=== PATIENT | female | born 1965 | race American Indian/Alaskan Native ===

== ENCOUNTER 2017-10-18 00:46 | Inpatient (IN) | payer MEDICAID, OTHER ==
[2017-10-18 01:24] LABS: BASO # 0.1 K/uL (0.0-0.2); BASO % 0.9 % (0.0-2.0); EOS # 0.2 K/uL (0.0-0.7); EOS % 1.9 % (0.0-4.0); HEMATOCRIT 34.1 % (34.0-47.0); LYMPH # 1.9 K/uL (1.0-4.3); LYMPH % 21.7 % (20.0-40.0); MEAN CORPUSCULAR HEMOGLOBIN 20.2 pg (27.0-31.0); MEAN CORPUSCULAR HGB CONC 29.8 g/dL (33.0-37.0); MEAN PLATELET VOLUME 8.3 fL (7.2-11.7); MONO # 0.5 K/uL (0.0-0.8); MONO % 5.8 % (0.0-10.0); NRBC % 0.1 % (0.0-2.0); RED CELL DISTRIBUTION WIDTH 24.6 % (11.5-14.5); WHITE BLOOD COUNT 8.6 K/uL (4.8-10.8)
[2017-10-18 01:25] LABS: MEAN CELL VOLUME 67.7 fL (81.0-99.0)
--- NOTE | 2017-10-18 01:35 | C.PDOC ---
History Of Present Illness 52 year old female with a Hx of fibroids presents to the ER with a complaint of chest pain and abdominal pain "all day". Denies fever or other complaints. Time Seen by Provider: 10/18/17 01:14 Chief Complaint (Nursing): Chest Pain History Per: Patient History/Exam Limitations: no limitations Onset/Duration Of Symptoms: Hrs Current Symptoms Are (Timing): Still Present Associated Symptoms: denies: Nausea, Dyspnea, Diaphoresis, Syncope Modifying Factors: None Exacerbating Factors: None Alleviating Factors: None Recent travel outside of the [place]: No Past Medical History Reviewed: Historical Data, Nursing Documentation, Vital Signs Vital Signs: Last Vital Signs Temp 98.2 F 10/18/17 12:00 Pulse 82 10/19/17 08:03 Resp 24 10/19/17 08:03 BP 154/80 H 10/19/17 08:03 Pulse Ox 97 10/19/17 08:03 - Medical History PMH: Anemia, HTN Surgical History: No Surg Hx Family History: States: Unknown Family Hx - Social History Hx Alcohol Use: No Hx Substance Use: Yes - Immunization History Hx Tetanus Toxoid Vaccination: No Hx Influenza Vaccination: No Hx Pneumococcal Vaccination: No Review Of Systems Constitutional: Negative for: Fever, Chills Cardiovascular: Positive for: Chest Pain Gastrointestinal: Positive for: Abdominal Pain. Negative for: Nausea, Vomiting Neurological: Negative for: Weakness, Numbness Physical Exam - Physical Exam Appears: Non-toxic, No Acute Distress Skin: Normal Color, Warm, Dry Head: Atraumatic, Normacephalic Eye(s): bilateral: Normal Inspection Oral Mucosa: Moist Chest: Symmetrical Cardiovascular: Rhythm Regular Respiratory: Normal Breath Sounds, No Rales, No Rhonchi, No Wheezing Gastrointestinal/Abdominal: Soft, Tenderness (Mild nonfocal), No Guarding, No Rebound Neurological/Psych: Oriented x3, Normal Speech, Other (No focal deficits) ED Course And Treatment - Laboratory Results Result Diagrams: 10/19/17 06:20 10/19/17 06:20 O2 Sat by Pulse Oximetry: 97 (Room air) Pulse Ox Interpretation: Normal - CT Scan/US CT abd/pel Other Rad Studies (CT/US): Read By Radiologist, Radiology Report Reviewed CT/US Interpretation: EXAM: CT Abdomen and Pelvis With Intravenous Contrast. CLINICAL HISTORY: 52 years old, female; Pain; Abdominal pain; Generalized; Additional info: Abd pain. TECHNIQUE: Axial computed tomography images of the abdomen and pelvis with intravenous contrast. All CT. scans at this facility use one or more dose reduction techniques, viz.: automated exposure control;. ma/kV adjustment per patient size (including targeted exams where dose is matched to indication; i.e. head); or iterative reconstruction technique. 640 images are submitted. Coronal and sagittal reformatted images were created and reviewed. COMPARISON: No relevant prior studies available. FINDINGS: Lower thorax: Small right more than left pleural effusions. Bibasilar nonspecific infiltrates and. consolidation are present, consistent with atelectasis or pneumonia. Small pericardial effusion. Small thick walled hiatal hernia. ABDOMEN: Liver: Unremarkable. No mass. Gallbladder and bile ducts: Unremarkable. No ductal dilation. Pancreas: Unremarkable. No mass. No ductal dilation. Spleen: Unremarkable. No splenomegaly. Adrenals: Unremarkable. No mass. Kidneys and ureters: Unremarkable. No solid mass. No hydronephrosis. Stomach and bowel: There is distal stomach wall thickening with surrounding fluid and air suspicious. for gastric ulcer perforation seen on image 67 series 3. There is small bowel wall thickening with free intraperitoneal fluid representing reactive changes versus enteritis. Nonspecific colonic thickening. with moderate amount of stool. Diverticulosis. No obstruction. Appendix: Normal appendix. PELVIS: Bladder: Partially distended bladder. Reproductive: Uterus is seen. ABDOMEN and PELVIS: Intraperitoneal space: Moderate to large amount of abdominal and pelvic ascites. There is history. intraperitoneal air suspicious for perforated viscus from an upper GI source. Bones/joints: No acute fracture. No dislocation. Soft tissues: Unremarkable. Vasculature: Unremarkable. No abdominal aortic aneurysm. Lymph nodes: Unremarkable. No enlarged lymph nodes. IMPRESSION: 1. Moderate to large amount of abdominal and pelvic ascites. There is history intraperitoneal. air suspicious for perforated viscus from an upper GI source. 2. There is distal stomach wall thickening with surrounding fluid and air suspicious for. gastric ulcer perforation seen on image 67 series 3 and on image 42 series 601 and image 71. series 602. 3.Small right more than left pleural effusions. Bibasilar nonspecific infiltrates and consolidation are. present, consistent with atelectasis or pneumonia. 4. Abdominal and pelvic ascites with bowel wall thickening. Correlation with clinical data is. recommended if peritonitis is clinically suspected with reactive enteritis. CRITICAL RESULT: The study was personally discussed on the telephone with [Piero Daigle]. on 10/18/2017 5 :44 AM EST. The results were understood and acknowledged. Critical Care Time - Critical Care Note Total Time (in mins): 45 Documented critical care: time excludes all time spent performing seperately billable procedures. Medical Decision Making Medical Decision Making: EKG, blood work, CXR, CT abd/pel, and urinalysis ordered. Case discussed with Dr. Gordon who agrees to admit patient to ICU, behavioral health technician is aware of patient. vice president tax at bedside, informs patient will be going to OR. Disposition - Disposition Disposition: HOSPITALIZED Disposition Time: 06:00 Condition: CRITICAL - Clinical Impression Clinical Impression: Perforated ulcer - Scribe Statement The provider has reviewed the documentation as recorded by the Scribmary jo Perez All medical record entries made by the Jameibmary jo were at my direction and personally dictated by me. I have reviewed the chart and agree that the record accurately reflects my personal performance of the history, physical exam, medical decision making, and the department course for this patient. I have also personally directed, reviewed, and agree with the discharge instructions and disposition.
[2017-10-18 01:48] LABS: CALCIUM 8.7 mg/dl (8.6-10.4); GFR AFRICAN-AMERICAN > 60; GLUCOSE,RANDOM 90 mg/dL (65-105)
[2017-10-18 01:49] LABS: ALB/GLOB RATIO 1.1 (1.0-2.1); ALKALINE PHOSPHATASE 82 U/L (38-126); ALT/SGPT 31 U/L (9-52); AST/SGOT 64 U/L (14-36); BILIRUBIN,TOTAL 1.2 mg/dL (0.2-1.3); BLOOD UREA NITROGEN 12 mg/dL (7-17); CARBON DIOXIDE 30 mmol/L (22-30); CHLORIDE 99 mmol/L (98-107); POTASSIUM 4.8 mmol/L (3.6-5.2); SODIUM 136 mmol/L (132-148); TOTAL PROTEIN 7.7 g/dL (6.3-8.3)
[2017-10-18 02:24] LABS: RBC URINE 1 /hpf (0-3); URINE BACTERIA RARE (<OCC); URINE BILIRUBIN NEGATIVE (NEGATIVE); URINE COLOR Yellow (YELLOW); URINE GLUCOSE (UA) NORMAL (Normal); URINE KETONE NEGATIVE (NEGATIVE); URINE LEUKOCYTE ESTERASE NEG Leu/uL (Negative); URINE PROTEIN NEGATIVE (NEGATIVE); URINE UROBILINOGEN NORMAL mg/dL (0.2-1.0); WBC URINE 1 /hpf (0-5)
[2017-10-18 02:29] LABS: URINE BLOOD NEGATIVE (NEGATIVE)
[2017-10-18] MEDS ORDERED: Morphine 4 MG/ML VIAL ONE ×3 (02:47→08:55)
[2017-10-18] MEDS ORDERED: Piperacillin/Tazobact 3.375 GM in Sodium Chloride 100 ML IVPB STA (05:44)
[2017-10-18] MEDS ORDERED: Sodium Chloride 0.9% 1,000 ML IV ONE ×3 (05:52→07:55)
[2017-10-18] MEDS ORDERED: Piperacill/Tazo 3.375gm in Dex 3.375 GM/50 ML BAG IVPB STA (06:05)
[2017-10-18] MEDS ORDERED: HYDROmorphone 1 mg/ml ISec IVP PRN (06:34)
[2017-10-18] MEDS ORDERED: HYDROmorphone 1 mg/ml ISec ONE (06:42)
[2017-10-18] MEDS ORDERED: Piperacill/Tazo 3.375gm in Dex 3.375 GM/50 ML BAG IVPB SCH (07:00)
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
[2017-10-18] MEDS ORDERED: Sodium Chloride 0.9% 1,000 ML ONE (07:39)
[2017-10-18] MEDS: Sodium Chloride 0.9% 1,000 ML IV SCH ×2 (07:41→14:08)
[2017-10-18] MEDS ORDERED: Lactated Ringer's 1,000 ML IV ONE ×2 (07:55→09:22)
[2017-10-18] MEDS ORDERED: Etomidate 20 mg/10ml Inj IV ONE (08:18)
[2017-10-18] MEDS ORDERED: Midazolam 2 MG/2 ML VIAL ONE (08:18)
[2017-10-18] MEDS ORDERED: Rocuronium 10 mg/ml (5 ml) ONE (08:36)
[2017-10-18] MEDS ORDERED: Neostigmine Methylsulfate 3mg/3ml Syringe IV ONE (09:22)
[2017-10-18] MEDS ORDERED: Enoxaparin 40 mg Syringe SC SCH (10:00)
--- NOTE | 2017-10-18 10:03 | PCM.SURG1 ---
Surgeon's Initial Post Op Note - Surgeon's Notes Surgeon: Dr. Gordon Bpo Specialist: Dr. Sanchez PGY3, PGY1, Tessa OMS3 Type of Anesthesia: General Endo Pre-Operative Diagnosis: perforated duodenal ulcer Operative Findings: see op note Post-Operative Diagnosis: as above Operation Performed: exploratory laparotomy w/ Lisandro patch Specimen/Specimens Removed: none Estimated Blood Loss: EBL {In ML}: 15 Drains Used: No Drains Date of Surgery/Procedure: 10/18/17 Time of Surgery/Procedure: 08:10
[2017-10-18] MEDS: Piperacill/Tazo 3.375gm in Dex 3.375 GM/50 ML BAG IVPB SCH ×3 (11:00→23:03)
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
--- NOTE | 2017-10-18 14:01 | RAD ---
PROCEDURE: CHEST RADIOGRAPH, 1 VIEW HISTORY: chest pain COMPARISON: None available. FINDINGS: LUNGS: Poor inspiration with low lung volumes, crowded bronchovascular markings and minor bibasilar atelectasis. PLEURA: No pneumothorax or pleural fluid seen. CARDIOVASCULAR: Heart size upper limits of normal/ borderline enlarged. OSSEOUS STRUCTURES: No significant abnormalities. VISUALIZED UPPER ABDOMEN: Normal. OTHER FINDINGS: None. IMPRESSION: Poor inspiration with low lung volumes, crowded bronchovascular markings and minor bibasilar atelectasis.
[2017-10-18] MEDS: metroNIDAZOLE IV 500 mg/100 ml 500 MG/100 ML BAG IVPB SCH ×2 (14:04→21:42)
[2017-10-18 16:58] LABS: BASO % 0.3 % (0.0-2.0); EOS % 0.1 % (0.0-4.0); HEMATOCRIT 30.1 % (34.0-47.0); LYMPH # 0.4 K/uL (1.0-4.3); LYMPH % 3.7 % (20.0-40.0); MEAN CELL VOLUME 67.4 fL (81.0-99.0); MEAN CORPUSCULAR HEMOGLOBIN 20.7 pg (27.0-31.0); MEAN CORPUSCULAR HGB CONC 30.7 g/dL (33.0-37.0); MEAN PLATELET VOLUME 8.2 fL (7.2-11.7); MONO # 0.5 K/uL (0.0-0.8); MONO % 4.5 % (0.0-10.0); PLATELET COUNT 498 K/uL (130-400); RED CELL DISTRIBUTION WIDTH 24.6 % (11.5-14.5); WHITE BLOOD COUNT 10.7 K/uL (4.8-10.8)
[2017-10-18 17:16] LABS: NEUTROPHIL 75 % (50-75); TOTAL CELLS COUNTED 100
[2017-10-18 17:19] LABS: LARGE PLATELETS PRESENT
[2017-10-18 17:35] LABS: ALB/GLOB RATIO 0.9 (1.0-2.1); ALKALINE PHOSPHATASE 63 U/L (38-126); ALT/SGPT 48 U/L (9-52); AST/SGOT 56 U/L (14-36); BILIRUBIN,TOTAL 1.1 mg/dL (0.2-1.3); BLOOD UREA NITROGEN 9 mg/dL (7-17); CARBON DIOXIDE 25 mmol/L (22-30); CHLORIDE 102 mmol/L (98-107); GFR AFRICAN-AMERICAN > 60; GLUCOSE,RANDOM 100 mg/dL (65-105); MAGNESIUM 1.5 mg/dL (1.6-2.3); POTASSIUM 3.7 mmol/L (3.6-5.2); SODIUM 131 mmol/L (132-148); TOTAL PROTEIN 6.2 g/dL (6.3-8.3)
--- NOTE | 2017-10-18 18:25 | OP ---
PROCEDURE DATE: 10/18/2017 SURGEON: Rosas Gordon MD ENGINEER/CONDUCTOR: Dr. Sanchez and Dr. Sharp. ANESTHESIA: General. ANESTHESIOLOGIST: Lloyd Colón DO PREOPERATIVE DIAGNOSIS: Perforated pyloric ulcer. POSTOPERATIVE DIAGNOSIS: Perforated pyloric ulcer. PROCEDURE: Exploratory laparotomy, abdominal flush out and plication of pyloric ulcer with Lisandro patch. DESCRIPTION OF OPERATION: With the patient in the supine position under adequate general anesthesia, the abdomen was prepped and draped in the usual sterile manner. A midline incision was made above the umbilicus and taken down through the subcutaneous tissue. The peritoneum was entered in the midline. Upon entering the peritoneal cavity, there was noted to be a moderate amount of cloudy fluid and a small exudate noted primarily in the upper abdomen, although some was noted in the pelvis as well. There was noted be adhesions of the omentum down to the area of the umbilicus and the left pelvis what appear to be laparoscopic tubal ligation, and these adhesions were freed-up with portion of the at most adherent omentum being clamped divided and ligated with Vicryl ties. The stomach was then fully freed, and on examination, there was noted to be a perforation of just under 1-cm noted on the anterior aspect of the distal stomach just prepyloric. There was some green-tinged drainage and small amount of what appeared to be vegetable material noted in the area of the perforation, and the abdomen at this point was irrigated with warm saline and suctioned with attention paid to both the right and left subphrenic spaces as well as the right and left gutters and the pelvis. Moderate fluid was expressed and small amount of exudate primarily from the pelvic region. The omentum at this point had been completely freed and a well-vascularized tongue of omentum was developed to perform the Lisandro patch. Interrupted sutures of 2-0 Vicryl were placed above and below the area of the perforation and the omentum was positioned over the sutures and covering the perforation and then loosely tied and placed to cover the perforation. The nasogastric tube was positioned well within the body of the stomach and placed on suction, and the pelvis was again irrigated with warm saline. The abdominal wall was closed with running sutures of double-stranded #1 PDS. The subcutaneous tissue was irrigated, and the skin was closed with ian. A dry sterile dressing was applied. Estimated blood loss for the procedure was 40 mL. Rosas Gordon MD
[2017-10-18 18:55] LABS: IRON 14 ug/dL (37-170)
--- NOTE | 2017-10-18 19:36 | CT ---
PROCEDURE: CT abdomen pelvis dated 10/18/2017. HISTORY: Abdominal pain. COMPARISON: No prior TECHNIQUE: Contiguous axial images of the abdomen and pelvis. Oral contrast was administered. No IV contrast given. Coronal and Sagittal reformats generated. Radiation dose: Total exam DLP = 842.42 mGy-cm. This CT exam was performed using one or more of the following dose reduction techniques: Automated exposure control, adjustment of the mA and/or kV according to patient size, and/or use of iterative reconstruction technique. FINDINGS: LOWER THORAX: Small bilateral effusions right larger than left. Patchy opacity seen in the right posterior and to a lesser degree left posterior sulci could represent atelectasis versus developing infiltrates. No basilar pneumothorax. There is a halo hernia with wall thickening of the distal esophagus which could be due to protrusion gastric mucosa. Esophagitis not excluded. Heart appears enlarged. LIVER: The liver is upper limits of normal measuring just over 18 cm in CC dimension. Mild diffuse fatty hepatic infiltration. Tiny sub cm low-attenuation focus lateral aspect right lobe liver too small to characterize. Followup interval could be performed to assess stability. Portal and splenic veins are opacified. . No gross intrahepatic did biliary duct dilatation. . There is a large amount of ascites the most significant which is located in the mid to lower abdomen and pelvis. GALLBLADDER AND BILE DUCTS: Gallbladder is physiologically distended. No evidence of intraluminal gallbladder calculi. Mild gallbladder wall thickening could be due to ascites. PANCREAS: The pancreas appears grossly unremarkable. . SPLEEN: Unremarkable. No splenomegaly. ADRENALS: No adrenal lesions. . KIDNEYS AND URETERS: Kidneys demonstrate symmetric nephrograms. No evidence of nephrolithiasis or hydronephrosis. BLADDER: Urinary bladder is physiologically distended. No evidence of intraluminal urinary bladder calculi. REPRODUCTIVE: The uterus appears grossly unremarkable. APPENDIX: Unremarkable. BOWEL: Evaluation of the bowel is limited due to the lack of oral contrast material. Liquid and air present within the stomach. Questionable wall thickening of the distal stomach. Rule out perforated ulcer. There is also a radiopaque metallic like density within the expected location of the lumen of the duodenum with another radiopaque density seen in the proximal small bowel an additional radiopaque densities within the slightly more distal small bowel. Clinical correlation recommended. There are of multiple loops of thick-walled small bowel nonspecific. Rule out reactive, infectious or inflammatory enteritis. Rule out of peritonitis. . . There is a large amount of stool seen within the cecum at ascending and transverse colon consistent with fecal retention. Most of the descending colon appears collapsed as does the sigmoid colon and cannot be adequately evaluated however questionable wall thickening of the splenic flexure and proximal descending colon. . . . PERITONEUM: There is a small amount of free intraperitoneal air. Large amount of ascites as described above. Rule out the peritonitis. LYMPH NODES: Unremarkable. No enlarged lymph nodes. VASCULATURE: Unremarkable. No aortic aneurysm. BONES: No fracture or destructive lesion. OTHER FINDINGS: None. IMPRESSION: There is a large amount of abdominal ascites with free intraperitoneal air. Rule out perforated gastric ulcer. There are multiple thick-walled loops of small bowel ; rule out enteritis reactive, infectious and or inflammatory. Rule out peritonitis. Constipation involving right and transverse colon. Questionable wall thickening of the splenic flexure and proximal descending colon. Small low-attenuation focus lateral aspect right lobe liver too small to characterize. Tiny bilateral effusions and minor bibasilar atelectasis. Cardiomegaly. Note that preliminary report provided by overnight radiology service.
[2017-10-18] MEDS: Magnesium Sulfate 1 gm in D5W 1 GM/100 ML BAG IVPB SCH ×2 (21:15→21:43)
[2017-10-19] MEDS: Sodium Chloride 0.9% 1,000 ML IV SCH ×2 (01:26→03:17)
[2017-10-19] MEDS: Piperacill/Tazo 3.375gm in Dex 3.375 GM/50 ML BAG IVPB SCH ×4 (04:59→22:10)
[2017-10-19] MEDS: metroNIDAZOLE IV 500 mg/100 ml 500 MG/100 ML BAG IVPB SCH ×3 (06:00→21:08)
[2017-10-19 06:44] LABS: HEMATOCRIT 28.1 % (34.0-47.0); MEAN CELL VOLUME 66.3 fL (81.0-99.0); MEAN CORPUSCULAR HEMOGLOBIN 20.7 pg (27.0-31.0); MEAN CORPUSCULAR HGB CONC 31.1 g/dL (33.0-37.0); MEAN PLATELET VOLUME 8.8 fL (7.2-11.7); RED CELL DISTRIBUTION WIDTH 24.5 % (11.5-14.5)
[2017-10-19 07:20] LABS: ALB/GLOB RATIO 1.2 (1.0-2.1); ALKALINE PHOSPHATASE 71 U/L (38-126); ALT/SGPT 29 U/L (9-52); AST/SGOT 33 U/L (14-36); BILIRUBIN,TOTAL 1.4 mg/dL (0.2-1.3); BLOOD UREA NITROGEN 8 mg/dL (7-17); CALCIUM 8.1 mg/dl (8.6-10.4); CARBON DIOXIDE 23 mmol/L (22-30); CHLORIDE 101 mmol/L (98-107); GFR AFRICAN-AMERICAN > 60; GLUCOSE,RANDOM 83 mg/dL (65-105); POTASSIUM 3.7 mmol/L (3.6-5.2); SODIUM 132 mmol/L (132-148); TOTAL PROTEIN 5.4 g/dL (6.3-8.3)
[2017-10-19] MEDS: Potassium Ch 20mEq in D5-1/2NS 1,000 ML IV SCH ×3 (09:51→17:41)
[2017-10-19] MEDS: Enoxaparin 40 mg Syringe SC SCH (09:54)
--- NOTE | 2017-10-19 11:53 | CP.PCM.PN ---
Subjective - Date & Time of Evaluation Date of Evaluation: 10/19/17 Time of Evaluation: 11:50 - Subjective Subjective: Surgery: Dr. Gordon Pt seen and examined. Has complaints of abd pain. No N/V. No F/C. Objective - Vital Signs/Intake and Output Vital Signs (last 24 hours): Temp Pulse Resp BP Pulse Ox 98.2 F 80 24 156/72 H 97 10/18/17 12:00 10/19/17 11:03 10/19/17 11:03 10/19/17 11:03 10/19/17 11:38 Intake and Output: 10/19/17 10/19/17 06:59 18:59 Intake Total 1850 650 Output Total 1765 950 Balance 85 -300 - Medications Medications: Current Medications Enoxaparin Sodium (Lovenox) 40 mg SC DAILY [facility] Last Admin: 10/19/17 09:54 Dose: 40 mg Hydromorphone HCl (Dilaudid) 2 mg IVP Q2 PRN PRN Reason: Excess sedation Stop: 10/21/17 10:57 Last Admin: 10/19/17 09:53 Dose: 2 mg Metronidazole (Flagyl) 500 mg in 100 mls @ 100 mls/hr IVPB Q8 [facility] Last Admin: 10/19/17 06:00 Dose: 100 mls/hr Piperacillin Sod/Tazobactam Sod (Zosyn 3.375 Gm Iv Premix) 3.375 gm in 50 mls @ 100 mls/hr IVPB Q6H [facility] Last Admin: 10/19/17 04:59 Dose: 100 mls/hr Acetaminophen (Ofirmev) 100 mls @ 400 mls/hr IV Q6 PRN PRN Reason: Pain, moderate (4-7) Last Admin: 10/19/17 09:53 Dose: 400 mls/hr Potassium Chloride/Dextrose/Sod Cl (Potassium Chl 20 Meq In D5-1/2ns) 1,000 mls @ 125 mls/hr IV .Q8H [facility] Last Admin: 10/19/17 09:51 Dose: 125 mls/hr Ondansetron HCl (Zofran Inj) 4 mg IVP Q4H PRN PRN Reason: Nausea/Vomiting Last Admin: 10/18/17 06:46 Dose: 4 mg Pantoprazole Sodium (Protonix Inj) 40 mg IVP Q12H [facility] Last Admin: 10/19/17 07:50 Dose: 40 mg - Labs Labs: 10/19/17 06:20 10/19/17 06:20 PT 10.7 SECONDS (9.7-12.2) 10/18/17 01:21 INR 1.0 10/18/17 01:21 APTT 23 SECONDS (21-34) 10/18/17 01:21 - Constitutional Appears: Non-toxic, No Acute Distress - Head Exam Head Exam: ATRAUMATIC, NORMOCEPHALIC - Eye Exam Eye Exam: EOMI - ENT Exam ENT Exam: Mucous Membranes Moist - Neck Exam Neck Exam: Full ROM - Respiratory Exam Respiratory Exam: NORMAL BREATHING PATTERN. absent: Accessory Muscle Use, Respiratory Distress - GI/Abdominal Exam GI & Abdominal Exam: Soft, Tenderness (denae-incisional ). absent: Distended, Firm, Guarding, Rigid Additional comments: dressing in place, C/D/I - Extremities Exam Extremities Exam: absent: Calf Tenderness, Pedal Edema - Neurological Exam Neurological Exam: Alert, Awake, Oriented x3 Assessment and Plan - Assessment and Plan (Free Text) Assessment: 52F w. perforated gastric ulcer, s/p ex-lap w. joan patch, POD#1 -NGT: 100cc/24 hr, keep NGT to suction -[place]: 1625cc/24 hr, will D/C -Pain: c/w dilaudid, will start ofirmev, psych consulted for methadone -c/w IVF -c/w abx -encourage IS use -PT -GI/DVT prophylaxis -d/w attending Zemaitis PGY3
--- NOTE | 2017-10-19 15:59 | PCM.PSYCH ---
Initial Psychiatric Evaluation - Initial Psychiatric Evaluation Type of Admission: Voluntary Legal Status: Capacity Chief Complaint (in patient's own words): "I need methadone" History of Present Illness and Precipitating Events: The pt is seen, chart reviewed, case discussed Consult was asked for her heroin use and psych issues She is a 52 yo AAF with bipolar d/o and opioid dependence She is single, lives with her mother and is on disability She reports using 10 bags intranasally x30 years. She had been to detox and rehab "5-6 times" and wants to go again. She used to go to a methadone program "years ago" in [place] and her dose was 30 mg. Utox is negative, she is NOT on methadone program anymore. She used just before admission here and is now on Dilaudid q2h, which she claims , is "not holding" her. She was restless and in mild withdrawal when seen. Pt was also taking depakote and seroquel but wants seroquel now No manic sxs but is somewhat depressed. NO psychosis or delirium Cocaine positive but denies all other substances and alcohol. Past psych hx: Admitted long ago, dx'ed with bipolar d/o. Name of dr? Family psych hx: Denied Medical hx: Denied but see chart for details, here for intestinal surgery. Current Medications: Active Medications Generic Name Dose Route Start Last Admin Trade Name Catarina PRN Reason Stop Dose Admin Enoxaparin Sodium 40 mg 10/19/17 10:00 10/19/17 09:54 Lovenox SC 40 mg DAILY [facility] Administration Hydromorphone HCl 2 mg 10/18/17 20:04 10/19/17 14:44 Dilaudid IVP 10/21/17 10:57 2 mg Q2 PRN Administration Excess sedation Metronidazole 500 mg in 100 mls @ 100 mls/hr 10/18/17 14:00 10/19/17 14:49 Flagyl IVPB 100 mls/hr Q8 [facility] Administration Piperacillin Sod/Tazobactam Sod 3.375 gm in 50 mls @ 100 mls/hr 10/18/17 11: 00 10/19/17 12:28 Zosyn 3.375 Gm Iv Premix IVPB 100 mls/hr Q6H [facility] Administration Acetaminophen 100 mls @ 400 mls/hr 10/19/17 07:38 10/19/17 09:53 Ofirmev IV 400 mls/hr Q6 PRN Administration Pain, moderate (4-7) Potassium Chloride/Dextrose/Sod Cl 1,000 mls @ 125 mls/hr 10/19/17 08:15 09:51 Potassium Chl 20 Meq In D5-1/2ns IV 125 mls/hr .Q8H [facility] Administration Ondansetron HCl 4 mg 10/18/17 06:35 10/18/17 06:46 Zofran Inj IVP 4 mg Q4H PRN Administration Nausea/Vomiting Pantoprazole Sodium 40 mg 10/18/17 07:15 10/19/17 07:50 Protonix Inj IVP 40 mg Q12H [facility] Administration Past Psychiatric History - Past Psychiatric History Previous Treatment History: Inpatient Pertinent Medical Hx (Current Medical&Sleep Prob, Allergies): Allergies Allergy/AdvReac Type Severity Reaction Status Date / Time No Known Allergies Allergy Unverified 10/18/17 00:54 Review of Systems - Neurological Neurological: Abnormal Gait, Tremor, Weakness - Psychiatric Psychiatric: Abnormal Sleep Pattern, Anhedonia, Anxiety, Depression, Difficulty Concentrating. absent: Hallucinations, Homicidal Ideation, Paranoia, Suicidal Ideation Mental Status Examination - Personal Presentation Personal Presentation: Looks older than stated age - Affect Affect: Constricted - Motor Activity Motor Activity: Psychomotor Agitation (mild) - Reliability in Providing Information Reliability in Providing Information: Fair - Speech Speech: Organized - Mood Mood: Anxious - Formal Thought Process Formal Thought Process: No Impairment - Cognitive Functions Orientation: Person, Place, Situation, Time Sensorium: Alert Attention/Concentration: Attentive Estimate of Intelligence: Average Judgement: Intact, as evidence by: Insight regarding need for hospitalization Memory: Recent intact, as evidence by: Ability to recall events of the day, Remote intact, as evidenced by: Ability to recall historical events - Risk Risk: Withdrawal, Diminished functioning - Strength & Assets Inventory Strength & Assets Inventory: Cooperative - Limitations Limitations: Other (medical ) DSM 5 DX - DSM 5 DSM 5 Diagnosis: Opioid withdrawal Opioid use d/o - severe Bipolar d/o - depressed - Recommended/Plan of Treatment Treatment Recommendations and Plan of Treatment: Opioids: - Pt can be started on methadone taper/detox but mixing with dilaudid or other opioid painkillers will be risky and will defy the purpose. - If she can be switched to a methadone-only pain management, please do so. [facility] does not order pain treatment. - Otherwise, please continue current regimen (maybe with more breakthrough pain management included) - She can do detox when she doesn't need as much opioid painkillers... - She can be referred to a methadone program or suboxone program by the SW ( when medically cleared) Bipolar d/o: - Seroquel started, dose will be increased slowly - Support given 33 min
[2017-10-20] MEDS: Potassium Ch 20mEq in D5-1/2NS 1,000 ML IV SCH ×4 (04:11→16:30)
[2017-10-20] MEDS: Piperacill/Tazo 3.375gm in Dex 3.375 GM/50 ML BAG IVPB SCH ×4 (04:33→22:37)
[2017-10-20] MEDS: metroNIDAZOLE IV 500 mg/100 ml 500 MG/100 ML BAG IVPB SCH ×3 (05:15→21:35)
--- NOTE | 2017-10-20 08:38 | CP.PCM.PN ---
Subjective - Date & Time of Evaluation Date of Evaluation: 10/20/17 Time of Evaluation: 07:00 - Subjective Subjective: General Surgery Note for Dr. Gordon Patient seen and examined at bedside. No acute event overnight. Patient transferred to floor from ICU. She still complains of abdominal and back pain. NGT 500cc/12hrs. No other complaints at this time. Objective - Vital Signs/Intake and Output Vital Signs (last 24 hours): Temp Pulse Resp BP Pulse Ox 97.3 F L 70 20 138/81 93 L 10/20/17 08:03 10/20/17 08:03 10/20/17 08:03 10/20/17 08:03 10/20/17 08:03 - Medications Medications: Current Medications Enoxaparin Sodium (Lovenox) 40 mg SC DAILY [facility] Last Admin: 10/19/17 09:54 Dose: 40 mg Hydromorphone HCl (Dilaudid) 2 mg IVP Q2 PRN PRN Reason: Pain, severe (8-10) Stop: 10/21/17 10:57 Last Admin: 10/20/17 04:33 Dose: 2 mg Metronidazole (Flagyl) 500 mg in 100 mls @ 100 mls/hr IVPB Q8 [facility] Last Admin: 10/20/17 05:15 Dose: 100 mls/hr Piperacillin Sod/Tazobactam Sod (Zosyn 3.375 Gm Iv Premix) 3.375 gm in 50 mls @ 100 mls/hr IVPB Q6H [facility] Last Admin: 10/20/17 04:33 Dose: 100 mls/hr Acetaminophen (Ofirmev) 100 mls @ 400 mls/hr IV Q6 PRN PRN Reason: Pain, moderate (4-7) Last Admin: 10/19/17 09:53 Dose: 400 mls/hr Potassium Chloride/Dextrose/Sod Cl (Potassium Chl 20 Meq In D5-1/2ns) 1,000 mls @ 125 mls/hr IV .Q8H [facility] Last Admin: 10/20/17 08:05 Dose: Not Given Methadone HCl (Methadone) 30 mg PO DAILY [facility] Last Admin: 10/19/17 21:07 Dose: 30 mg Ondansetron HCl (Zofran Inj) 4 mg IVP Q4H PRN PRN Reason: Nausea/Vomiting Last Admin: 10/18/17 06:46 Dose: 4 mg Pantoprazole Sodium (Protonix Inj) 40 mg IVP Q12H [facility] Last Admin: 10/19/17 18:44 Dose: 40 mg - Labs Labs: 10/19/17 06:20 10/19/17 06:20 PT 10.7 SECONDS (9.7-12.2) 10/18/17 01:21 INR 1.0 10/18/17 01:21 APTT 23 SECONDS (21-34) 10/18/17 01:21 - Constitutional Appears: No Acute Distress - Head Exam Head Exam: ATRAUMATIC, NORMOCEPHALIC - Eye Exam Eye Exam: Normal appearance - ENT Exam ENT Exam: Mucous Membranes Moist - Respiratory Exam Respiratory Exam: NORMAL BREATHING PATTERN - Cardiovascular Exam Cardiovascular Exam: REGULAR RHYTHM - GI/Abdominal Exam GI & Abdominal Exam: Soft, Tenderness (incisional). absent: Distended, Firm, Guarding, Rigid, Rebound Additional comments: dressings clean dry and intact - Neurological Exam Neurological Exam: Alert, Awake, Oriented x3 - Psychiatric Exam Psychiatric exam: Normal Affect, Normal Mood - Skin Skin Exam: Dry, Intact, Normal Color, Warm Assessment and Plan - Assessment and Plan (Free Text) Plan: 52F with perforated gastric ulcer, s/p ex-lap and joan patch POD#2 -NG Tube to suction -Pain management - psych consult for methadone -IV Fluids -IV antibiotics -OOB/IS/ambulation -PT/OT -GI/DVT prophylaxis --Discused with Dr. Evan Page PGY1
[2017-10-20] MEDS: Enoxaparin 40 mg Syringe SC SCH (09:18)
[2017-10-21] MEDS: Potassium Ch 20mEq in D5-1/2NS 1,000 ML IV SCH ×5 (00:15→21:21)
[2017-10-21] MEDS: Piperacill/Tazo 3.375gm in Dex 3.375 GM/50 ML BAG IVPB SCH ×4 (05:30→23:35)
[2017-10-21] MEDS: metroNIDAZOLE IV 500 mg/100 ml 500 MG/100 ML BAG IVPB SCH ×3 (06:03→21:29)
[2017-10-21] MEDS: Enoxaparin 40 mg Syringe SC SCH (10:09)
--- NOTE | 2017-10-21 11:59 | CP.PCM.PN ---
Subjective - Date & Time of Evaluation Date of Evaluation: 10/21/17 Time of Evaluation: 11:57 - Subjective Subjective: Surgery: Dr. Gordon Pt seen and examined. Resting comfortably in bed. Pain is controlled. NGT was D/ C this morning. No complaints of N/V. Pt is hungry and would like to eat. Objective - Vital Signs/Intake and Output Vital Signs (last 24 hours): Temp Pulse Resp BP Pulse Ox 97.3 F L 62 18 144/89 96 10/21/17 08:40 10/21/17 08:40 10/21/17 08:40 10/21/17 08:40 10/21/17 08:40 Intake and Output: 10/21/17 10/21/17 06:59 18:59 Intake Total 2350 Output Total 350 Balance 1999 - Medications Medications: Current Medications Enoxaparin Sodium (Lovenox) 40 mg SC DAILY [facility] Last Admin: 10/21/17 10:09 Dose: 40 mg Metronidazole (Flagyl) 500 mg in 100 mls @ 100 mls/hr IVPB Q8 [facility] Last Admin: 10/21/17 06:03 Dose: 100 mls/hr Piperacillin Sod/Tazobactam Sod (Zosyn 3.375 Gm Iv Premix) 3.375 gm in 50 mls @ 100 mls/hr IVPB Q6H [facility] Last Admin: 10/21/17 10:09 Dose: 100 mls/hr Acetaminophen (Ofirmev) 100 mls @ 400 mls/hr IV Q6 PRN PRN Reason: Pain, moderate (4-7) Last Admin: 10/19/17 09:53 Dose: 400 mls/hr Potassium Chloride/Dextrose/Sod Cl (Potassium Chl 20 Meq In D5-1/2ns) 1,000 mls @ 80 mls/hr IV .[id number] [facility] Last Admin: 10/21/17 08:02 Dose: 80 mls/hr Methadone HCl (Methadone) 30 mg PO DAILY [facility] Last Admin: 10/21/17 10:08 Dose: 30 mg Ondansetron HCl (Zofran Inj) 4 mg IVP Q4H PRN PRN Reason: Nausea/Vomiting Last Admin: 10/18/17 06:46 Dose: 4 mg Pantoprazole Sodium (Protonix Inj) 40 mg IVP Q12H [facility] Last Admin: 10/21/17 06:15 Dose: 40 mg Quetiapine Fumarate (Seroquel) 50 mg PO HS [facility] Last Admin: 10/20/17 22:40 Dose: 50 mg - Labs Labs: 10/19/17 06:20 10/19/17 06:20 PT 10.7 SECONDS (9.7-12.2) 10/18/17 01:21 INR 1.0 10/18/17 01:21 APTT 23 SECONDS (21-34) 10/18/17 01:21 - Constitutional Appears: Non-toxic, No Acute Distress - Head Exam Head Exam: ATRAUMATIC, NORMOCEPHALIC - Eye Exam Eye Exam: EOMI - ENT Exam ENT Exam: Mucous Membranes Moist - Neck Exam Neck Exam: Full ROM - Respiratory Exam Respiratory Exam: NORMAL BREATHING PATTERN. absent: Accessory Muscle Use, Respiratory Distress - GI/Abdominal Exam GI & Abdominal Exam: Soft, Tenderness (mild denae-incisional ). absent: Distended, Firm, Guarding, Rigid - Extremities Exam Extremities Exam: absent: Calf Tenderness, Pedal Edema - Neurological Exam Neurological Exam: Alert, Awake, Oriented x3 Assessment and Plan - Assessment and Plan (Free Text) Assessment: 52F with perforated gastric ulcer, s/p ex-lap and joan patch POD#3 -F/U labs -c/w pain management -NGT removed, will start CLD, monitor bowel fxn, advance diet as tolerated -PT ordered -encourage OOB to chair and IS use -GI/DVT prophylaxis -d/w attending Zemaitis PGY3
[2017-10-21 12:45] LABS: HEMATOCRIT 24.9 % (34.0-47.0); MEAN CELL VOLUME 65.9 fL (81.0-99.0); MEAN CORPUSCULAR HEMOGLOBIN 20.1 pg (27.0-31.0); MEAN CORPUSCULAR HGB CONC 30.4 g/dL (33.0-37.0); RED CELL DISTRIBUTION WIDTH 24.3 % (11.5-14.5); WHITE BLOOD COUNT 6.7 K/uL (4.8-10.8)
--- NOTE | 2017-10-21 13:05 | PCM.PYCHPN ---
Psychiatric Progress Note - Psychiatric Progress Note Patient seen today, length of contact: 15 min Patient Chief Complaint: "I need help" Problems Identified/Issues Discussed: The patient is seen, chart reviewed and case discussed. The patient is on 30 mg methadone AND other pain medications as needed. Oddly enough she still wants more medications. However literary writer spoke to her and she understood that she would be tapered off. This is important because she also wants to go to a rehabilitation after he and she won't be able to go if she is not detoxed and if she is not off pain medications. She may take known opiate pain medications. She understood Otherwise, she is okay with Seroquel which the dose will be increased. No suicidality, no manic or psychotic symptoms. Support given, ID used Medication Change: Yes (start tapering off methadone) Medical Record Reviewed: Yes Mental Status Examination - Cognitive Function Orientation: Person, Place, Situation, Time Memory: Impaired Attention: Poor Concentration: Poor Association: WNL Fund of Knowledge: Poor - Mood Mood: Anxious - Affect Affect: Constricted - Speech Speech: Appropriate - Formal Thought Process Formal Thought Process: No Impairment - Suicidal Ideation Suicidal Ideation: No - Homicidal Ideation Homicidal Ideation: No Goal/Treatment Plan - Goal/Treatment Plan Need for Continued Stay: Discharge may exacerbated symptoms, Severe functional impairment Progress Toward Problem(s) and Goals/Treatment Plan: Opioids: - Methadone taper will be completed by Thursday - She can be referred to a methadone program or suboxone program by the ( when medically cleared) Bipolar d/o: - Seroquel dose increased - Support given
[2017-10-21 13:07] LABS: ALB/GLOB RATIO 0.8 (1.0-2.1); ALKALINE PHOSPHATASE 56 U/L (38-126); ALT/SGPT 33 U/L (9-52); AST/SGOT 12 U/L (14-36); BILIRUBIN,TOTAL 0.6 mg/dL (0.2-1.3); BLOOD UREA NITROGEN 5 mg/dL (7-17); CALCIUM 7.9 mg/dl (8.6-10.4); CARBON DIOXIDE 28 mmol/L (22-30); CHLORIDE 103 mmol/L (98-107); GFR AFRICAN-AMERICAN > 60; GLUCOSE,RANDOM 86 mg/dL (65-105); POTASSIUM 3.6 mmol/L (3.6-5.2); SODIUM 135 mmol/L (132-148); TOTAL PROTEIN 6.4 g/dL (6.3-8.3)
[2017-10-21] MEDS: HYDROmorphone 1 mg/ml ISec IVP PRN ×4 (14:29→21:29)
[2017-10-22] MEDS: HYDROmorphone 1 mg/ml ISec IVP PRN ×3 (00:26→06:17)
[2017-10-22] MEDS: Piperacill/Tazo 3.375gm in Dex 3.375 GM/50 ML BAG IVPB SCH ×4 (04:20→23:55)
[2017-10-22] MEDS: metroNIDAZOLE IV 500 mg/100 ml 500 MG/100 ML BAG IVPB SCH ×3 (05:36→21:34)
[2017-10-22 08:42] LABS: HEMATOCRIT 27.6 % (34.0-47.0); MEAN CELL VOLUME 66.8 fL (81.0-99.0); MEAN CORPUSCULAR HEMOGLOBIN 20.2 pg (27.0-31.0); MEAN CORPUSCULAR HGB CONC 30.2 g/dL (33.0-37.0); MEAN PLATELET VOLUME 8.1 fL (7.2-11.7); RED CELL DISTRIBUTION WIDTH 24.2 % (11.5-14.5); WHITE BLOOD COUNT 6.2 K/uL (4.8-10.8)
[2017-10-22 08:51] LABS: ALKALINE PHOSPHATASE 58 U/L (38-126); ALT/SGPT 32 U/L (9-52); AST/SGOT 13 U/L (14-36); BILIRUBIN,TOTAL 0.8 mg/dL (0.2-1.3); BLOOD UREA NITROGEN 6 mg/dL (7-17); CALCIUM 8.6 mg/dl (8.6-10.4); CARBON DIOXIDE 28 mmol/L (22-30); CHLORIDE 101 mmol/L (98-107); GFR AFRICAN-AMERICAN > 60; GLUCOSE,RANDOM 75 mg/dL (65-105); SODIUM 139 mmol/L (132-148)
[2017-10-22 08:52] LABS: ALB/GLOB RATIO 1.1 (1.0-2.1)
[2017-10-22] MEDS ORDERED: HYDROmorphone 0.5 mg/0.5 ml ISec IVP PRN (09:30)
[2017-10-22] MEDS: Enoxaparin 40 mg Syringe SC SCH (09:46)
[2017-10-22] MEDS: Potassium Ch 20mEq in D5-1/2NS 1,000 ML IV SCH (09:54)
--- NOTE | 2017-10-22 13:02 | PCM.PYCHPN ---
Psychiatric Progress Note - Psychiatric Progress Note Patient seen today, length of contact: 15 min Patient Chief Complaint: "I am better today but I can't work, I am disabled" Problems Identified/Issues Discussed: The patient is seen, chart reviewed and case discussed. She thought we asked her to work after here, whereas we recommended a work rehab , ie [facility] as she wants to go to one. Support given She is not sure what she will do but does not have many options DC used Medication Change: Yes (start tapering off methadone) Medical Record Reviewed: Yes Mental Status Examination - Cognitive Function Orientation: Person, Place, Situation, Time Memory: Impaired Attention: Poor Concentration: Poor Association: WNL Fund of Knowledge: Poor - Mood Mood: Anxious - Affect Affect: Constricted - Speech Speech: Appropriate - Formal Thought Process Formal Thought Process: No Impairment - Suicidal Ideation Suicidal Ideation: No - Homicidal Ideation Homicidal Ideation: No Goal/Treatment Plan - Goal/Treatment Plan Need for Continued Stay: Discharge may exacerbated symptoms, Severe functional impairment Progress Toward Problem(s) and Goals/Treatment Plan: Opioids: - Methadone taper will be completed by Thursday - She can be referred to a methadone program or suboxone program by the ( when medically cleared) Bipolar d/o: - Seroquel dose increased - Support given
--- NOTE | 2017-10-22 14:42 | CP.PCM.PN ---
Subjective - Date & Time of Evaluation Date of Evaluation: 10/22/17 Time of Evaluation: 14:39 - Subjective Subjective: Surgery: Dr. Gordon Pt seen and examined. Pt is doing well. Pain is controlled. She is tolerating CLD, she is hungry and wants to eat more. She denies N/V. She is passing flatus. No BM. Objective - Vital Signs/Intake and Output Vital Signs (last 24 hours): Temp Pulse Resp BP Pulse Ox 97.9 F 80 20 123/79 100 10/22/17 08:00 10/22/17 08:00 10/22/17 08:00 10/22/17 08:00 10/22/17 08:00 Intake and Output: 10/22/17 10/22/17 06:59 18:59 Intake Total 640 Balance 640 - Medications Medications: Current Medications Enoxaparin Sodium (Lovenox) 40 mg SC DAILY [facility] Last Admin: 10/22/17 09:46 Dose: 40 mg Hydromorphone HCl (Dilaudid) 1 mg IVP Q2H PRN PRN Reason: Pain, severe (8-10) Last Admin: 10/22/17 14:09 Dose: 1 mg Metronidazole (Flagyl) 500 mg in 100 mls @ 100 mls/hr IVPB Q8 [facility] Last Admin: 10/22/17 14:09 Dose: 100 mls/hr Piperacillin Sod/Tazobactam Sod (Zosyn 3.375 Gm Iv Premix) 3.375 gm in 50 mls @ 100 mls/hr IVPB Q6H [facility] Last Admin: 10/22/17 10:55 Dose: 100 mls/hr Acetaminophen (Ofirmev) 100 mls @ 400 mls/hr IV Q6 PRN PRN Reason: Pain, moderate (4-7) Last Admin: 10/19/17 09:53 Dose: 400 mls/hr Potassium Chloride/Dextrose/Sod Cl (Potassium Chl 20 Meq In D5-1/2ns) 1,000 mls @ 80 mls/hr IV .[id number] [facility] Last Admin: 10/22/17 09:54 Dose: Not Given Methadone HCl (Methadone) 25 mg PO Q24H [facility] PRN Reason: Taper Stop: 10/27/17 08:59 Last Admin: 10/22/17 09:45 Dose: 25 mg Ondansetron HCl (Zofran Inj) 4 mg IVP Q4H PRN PRN Reason: Nausea/Vomiting Last Admin: 10/18/17 06:46 Dose: 4 mg Pantoprazole Sodium (Protonix Inj) 40 mg IVP Q12H [facility] Last Admin: 10/22/17 06:17 Dose: 40 mg Quetiapine Fumarate (Seroquel) 100 mg PO HS [facility] Last Admin: 10/21/17 22:30 Dose: 100 mg - Labs Labs: 10/22/17 08:18 10/22/17 08:18 PT 10.7 SECONDS (9.7-12.2) 10/18/17 01:21 INR 1.0 10/18/17 01:21 APTT 23 SECONDS (21-34) 10/18/17 01:21 - Constitutional Appears: Non-toxic, No Acute Distress - Head Exam Head Exam: ATRAUMATIC, NORMOCEPHALIC - Eye Exam Eye Exam: EOMI - ENT Exam ENT Exam: Mucous Membranes Moist - Neck Exam Neck Exam: Full ROM - Respiratory Exam Respiratory Exam: NORMAL BREATHING PATTERN. absent: Accessory Muscle Use, Respiratory Distress - GI/Abdominal Exam GI & Abdominal Exam: Soft, Tenderness. absent: Distended, Firm, Guarding, Rigid , Rebound Additional comments: dressing in place, C/D/I - Neurological Exam Neurological Exam: Alert, Awake, Oriented x3 - Psychiatric Exam Psychiatric exam: Normal Affect, Normal Mood Assessment and Plan - Assessment and Plan (Free Text) Assessment: 52F with perforated gastric ulcer, s/p ex-lap and joan patch POD#4 -Diet advanced to full liquids, monitor bowel fxn, ADAT -c/w pain management -encourage ambulation, PT, IS use -GI/DVT prophylaxis -d/w attending Zemaitis PGY3
[2017-10-23] MEDS: Piperacill/Tazo 3.375gm in Dex 3.375 GM/50 ML BAG IVPB SCH ×3 (05:02→17:00)
[2017-10-23] MEDS: metroNIDAZOLE IV 500 mg/100 ml 500 MG/100 ML BAG IVPB SCH ×2 (06:11→13:37)
--- NOTE | 2017-10-23 08:40 | CP.PCM.PN ---
Subjective - Date & Time of Evaluation Date of Evaluation: 10/23/17 Time of Evaluation: 08:31 - Subjective Subjective: Gen Sx: Dr Gordon Pt S&E. NAEO. Resting comfortably. Minimal pain at incision site. Tolerating regular diet. Passing flatus but has not had bowel movement. Feels distended. Pt reports she would like to go to Rehab facility on thursday Objective - Vital Signs/Intake and Output Vital Signs (last 24 hours): Temp Pulse Resp BP Pulse Ox 98.4 F 61 18 130/75 96 10/23/17 07:40 10/23/17 07:40 10/23/17 07:40 10/23/17 07:40 10/23/17 07:40 - Medications Medications: Current Medications Docusate Sodium (Colace) 100 mg PO TID [facility] Last Admin: 10/22/17 18:25 Dose: 100 mg Enoxaparin Sodium (Lovenox) 40 mg SC DAILY [facility] Last Admin: 10/22/17 09:46 Dose: 40 mg Hydromorphone HCl (Dilaudid) 1 mg IVP Q2H PRN PRN Reason: Pain, severe (8-10) Last Admin: 10/23/17 08:28 Dose: 1 mg Metronidazole (Flagyl) 500 mg in 100 mls @ 100 mls/hr IVPB Q8 [facility] Last Admin: 10/23/17 06:11 Dose: 100 mls/hr Piperacillin Sod/Tazobactam Sod (Zosyn 3.375 Gm Iv Premix) 3.375 gm in 50 mls @ 100 mls/hr IVPB Q6H [facility] Last Admin: 10/23/17 05:02 Dose: 100 mls/hr Acetaminophen (Ofirmev) 100 mls @ 400 mls/hr IV Q6 PRN PRN Reason: Pain, moderate (4-7) Last Admin: 10/19/17 09:53 Dose: 400 mls/hr Methadone HCl (Methadone) 25 mg PO Q24H [facility] PRN Reason: Taper Stop: 10/27/17 08:59 Last Admin: 10/22/17 09:45 Dose: 25 mg Ondansetron HCl (Zofran Inj) 4 mg IVP Q4H PRN PRN Reason: Nausea/Vomiting Last Admin: 10/18/17 06:46 Dose: 4 mg Pantoprazole Sodium (Protonix Inj) 40 mg IVP Q12H [facility] Last Admin: 10/23/17 07:27 Dose: 40 mg Quetiapine Fumarate (Seroquel) 100 mg PO HS [facility] Last Admin: 10/22/17 21:34 Dose: 100 mg - Labs Labs: 10/22/17 08:18 10/22/17 08:18 PT 10.7 SECONDS (9.7-12.2) 10/18/17 01:21 INR 1.0 10/18/17 01:21 APTT 23 SECONDS (21-34) 10/18/17 01:21 - Constitutional Appears: Non-toxic, No Acute Distress - ENT Exam ENT Exam: Mucous Membranes Moist - Respiratory Exam Respiratory Exam: absent: Accessory Muscle Use, Respiratory Distress - Cardiovascular Exam Cardiovascular Exam: REGULAR RHYTHM. absent: Tachycardia - GI/Abdominal Exam GI & Abdominal Exam: Distended, Soft, Tenderness (minimal ). absent: Firm, Guarding, Rigid Additional comments: incision c/d/i - Extremities Exam Extremities Exam: absent: Pedal Edema - Neurological Exam Neurological Exam: Alert, Awake, Oriented x3 - Psychiatric Exam Psychiatric exam: Normal Affect, Normal Mood - Skin Skin Exam: Normal Color, Warm Assessment and Plan - Assessment and Plan (Free Text) Assessment: 52F POD#5 s/p ex-lap with joan patch for perforated gastric ulcer Plan: will order tap water enema pt doing very well will plan for D/C thursday when pt has placement at rehab facility continue to monitor for BM d/w Dr Evan Sanchez, PGY3
[2017-10-23] MEDS: Enoxaparin 40 mg Syringe SC SCH (09:40)
[2017-10-23 12:52] LABS: ACETONE None Detected; ETHANOL None Detected; METHANOL None Detected
[2017-10-23] MEDS: HYDROmorphone 1 mg/ml ISec IVP PRN ×4 (13:38→21:35)
--- NOTE | 2017-10-23 14:10 | PCM.PYCHPN ---
Psychiatric Progress Note - Psychiatric Progress Note Patient seen today, length of contact: 17 min Patient Chief Complaint: "I am better today but I would like to do what we spoke about yesterday" Problems Identified/Issues Discussed: The patient is seen, chart reviewed and case discussed. Pt agreed to go to [facility] after discharge. Pt appears well and is in good spirits about going to [facility]. Support given [place] used Medication Change: Yes (Methadone Taper) Medical Record Reviewed: Yes Mental Status Examination - Cognitive Function Orientation: Person, Place, Situation, Time Memory: Impaired Attention: WNL Concentration: WNL Association: WNL Fund of Knowledge: Poor - Mood Mood: Anxious - Affect Affect: Constricted - Speech Speech: Appropriate - Formal Thought Process Formal Thought Process: No Impairment - Suicidal Ideation Suicidal Ideation: No - Homicidal Ideation Homicidal Ideation: No Goal/Treatment Plan - Goal/Treatment Plan Need for Continued Stay: Discharge may exacerbated symptoms, Severe functional impairment Progress Toward Problem(s) and Goals/Treatment Plan: Opioids: - Methadone taper will be completed by Thursday - She can be referred to a methadone program or suboxone program by the SW ( when medically cleared) Bipolar d/o: - Seroquel dose increased - Support given Psych will sign off at this point
[2017-10-24] MEDS: HYDROmorphone 1 mg/ml ISec IVP PRN ×7 (00:07→21:59)
[2017-10-24] MEDS: Enoxaparin 40 mg Syringe SC SCH (10:35)
--- NOTE | 2017-10-24 14:45 | CP.PCM.PN ---
Subjective - Date & Time of Evaluation Date of Evaluation: 10/24/17 Time of Evaluation: 07:45 - Subjective Subjective: General surgery progress note for Dr. Syed Hilario, PGY-1 Pt S & E at bedside this AM. Pt reports continue abdominal pain, controlled with pain meds. Had a BM overnight. Is voiding. Tolerating regular diet. Reports ambulating with assistance of walker. Denies N & V, F & C. Objective - Vital Signs/Intake and Output Vital Signs (last 24 hours): Temp Pulse Resp BP Pulse Ox 98.3 F 63 20 143/84 95 10/24/17 08:39 10/24/17 08:39 10/24/17 08:39 10/24/17 08:39 10/24/17 08:39 Intake and Output: 10/24/17 10/24/17 06:59 18:59 Intake Total 550 Balance 550 - Medications Medications: Current Medications Docusate Sodium (Colace) 100 mg PO TID [facility] Last Admin: 10/24/17 13:17 Dose: 100 mg Enoxaparin Sodium (Lovenox) 40 mg SC DAILY [facility] Last Admin: 10/24/17 10:35 Dose: 40 mg Hydromorphone HCl (Dilaudid) 1 mg IVP Q2H PRN PRN Reason: Pain, severe (8-10) Last Admin: 10/24/17 11:34 Dose: 1 mg Acetaminophen (Ofirmev) 100 mls @ 400 mls/hr IV Q6 PRN PRN Reason: Pain, moderate (4-7) Last Admin: 10/19/17 09:53 Dose: 400 mls/hr Methadone HCl (Methadone) 15 mg PO Q24H [facility] PRN Reason: Taper Stop: 10/27/17 08:59 Last Admin: 10/24/17 09:21 Dose: 15 mg Ondansetron HCl (Zofran Inj) 4 mg IVP Q4H PRN PRN Reason: Nausea/Vomiting Last Admin: 10/18/17 06:46 Dose: 4 mg Pantoprazole Sodium (Protonix Inj) 40 mg IVP Q12H [facility] Last Admin: 10/24/17 08:00 Dose: 40 mg Quetiapine Fumarate (Seroquel) 100 mg PO HS [facility] Last Admin: 10/23/17 21:35 Dose: 100 mg - Labs Labs: 10/22/17 08:18 10/22/17 08:18 PT 10.7 SECONDS (9.7-12.2) 10/18/17 01:21 INR 1.0 10/18/17 01:21 APTT 23 SECONDS (21-34) 10/18/17 01:21 - Constitutional Appears: Non-toxic, No Acute Distress - Head Exam Head Exam: ATRAUMATIC, NORMAL INSPECTION, NORMOCEPHALIC - Eye Exam Eye Exam: EOMI, Normal appearance - ENT Exam ENT Exam: Mucous Membranes Moist, Normal Exam - Neck Exam Neck Exam: Full ROM, Normal Inspection - Respiratory Exam Respiratory Exam: Clear to Ausculation Bilateral, NORMAL BREATHING PATTERN - Cardiovascular Exam Cardiovascular Exam: REGULAR RHYTHM, +S1, +S2 - GI/Abdominal Exam GI & Abdominal Exam: Distended (mildly), Soft, Tenderness (over incision site/ epigastric area, dressing in place- clean/dry/intact). absent: Firm, Guarding, Rigid, Mass - Extremities Exam Extremities Exam: Normal Inspection - Neurological Exam Neurological Exam: Alert, Awake, CN II-XII Intact, Oriented x3 - Psychiatric Exam Psychiatric exam: Normal Affect - Skin Skin Exam: Dry, Intact, Normal Color, Warm Assessment and Plan - Assessment and Plan (Free Text) Assessment: 52F POD#6 s/p Ex-lap with Lisandro patch 2/2 perf'd gastric ulcer Plan: Cont pain regimen OOBTC Ambulate with assistance Encourage IS use Monitor for continued bowel function Plan for transfer to rehab Thursday DW attending Yanelis, PGY-1
[2017-10-24] MEDS ORDERED: POLYETHYLENE GLYCOL 3350 17 GM/Dose PACKET PO ONE ×2 (16:55→20:00)
[2017-10-25] MEDS: HYDROmorphone 1 mg/ml ISec IVP PRN ×7 (00:25→21:06)
[2017-10-25 02:19] VITALS: RESP 20
[2017-10-25] MEDS: Enoxaparin 40 mg Syringe SC SCH (10:09)
--- NOTE | 2017-10-25 11:53 | CP.PCM.PN ---
Subjective - Date & Time of Evaluation Date of Evaluation: 10/25/17 Time of Evaluation: 09:10 - Subjective Subjective: Surgery Progress note. Dr. Gordon Pt seen and examined at bedside. No acute events overnight. Reports constipation. Is passing flatus. Denies N/V/D. Diffuse abd pain. Is ambulating. No F/C. Objective - Vital Signs/Intake and Output Vital Signs (last 24 hours): Temp Pulse Resp BP Pulse Ox 97.8 F 58 L 20 130/79 98 10/25/17 09:04 10/25/17 09:04 10/25/17 09:04 10/25/17 09:04 10/25/17 09:04 Intake and Output: 10/25/17 10/25/17 06:59 18:59 Intake Total 150 Balance 150 - Medications Medications: Current Medications Acetaminophen (Tylenol 325mg Tab) 650 mg PO Q6 PRN PRN Reason: Pain, moderate (4-7) Docusate Sodium (Colace) 100 mg PO TID [facility] Last Admin: 10/25/17 10:08 Dose: 100 mg Enoxaparin Sodium (Lovenox) 40 mg SC DAILY [facility] Last Admin: 10/25/17 10:09 Dose: 40 mg Hydromorphone HCl (Dilaudid) 1 mg IVP Q2H PRN PRN Reason: Pain, severe (8-10) Last Admin: 10/25/17 08:00 Dose: 1 mg Methadone HCl (Methadone) 10 mg PO Q24H [facility] PRN Reason: Taper Stop: 10/27/17 08:59 Last Admin: 10/25/17 09:30 Dose: 10 mg Ondansetron HCl (Zofran Inj) 4 mg IVP Q4H PRN PRN Reason: Nausea/Vomiting Last Admin: 10/18/17 06:46 Dose: 4 mg Pantoprazole Sodium (Protonix Inj) 40 mg IVP Q12H [facility] Last Admin: 10/25/17 07:59 Dose: 40 mg Quetiapine Fumarate (Seroquel) 100 mg PO HS [facility] Last Admin: 10/24/17 22:00 Dose: 100 mg - Labs Labs: 10/22/17 08:18 10/22/17 08:18 PT 10.7 SECONDS (9.7-12.2) 10/18/17 01:21 INR 1.0 10/18/17 01:21 APTT 23 SECONDS (21-34) 10/18/17 01:21 - Constitutional Appears: Well, No Acute Distress - Head Exam Head Exam: ATRAUMATIC, NORMAL INSPECTION, NORMOCEPHALIC - Eye Exam Eye Exam: EOMI - ENT Exam ENT Exam: Mucous Membranes Moist - Respiratory Exam Respiratory Exam: NORMAL BREATHING PATTERN. absent: Accessory Muscle Use, Respiratory Distress - GI/Abdominal Exam GI & Abdominal Exam: Distended, Guarding Additional comments: soft, mild distention. Diffusely tender to palpation. Dressing in place, clean dry and intact. - Extremities Exam Extremities Exam: Normal Inspection. absent: Calf Tenderness - Neurological Exam Neurological Exam: Alert, Awake, Oriented x3 - Psychiatric Exam Psychiatric exam: Anxious Assessment and Plan - Assessment and Plan (Free Text) Assessment: 52yo F with perforated gastric ulcer. S/P Ex lap with joan patch. POD7 - Continue pain management - Encourage OOB to chair, ambulate - Continue IS use - monitor bowel fxn. Enema ordered for today - plan to transfer to rehab Thursday, pending acceptance Further recs as per Dr. Evan Ball PGY1 surgery pager: [phone]
[2017-10-26] MEDS: HYDROmorphone 1 mg/ml ISec IVP PRN ×5 (00:24→12:14)
[2017-10-26 09:02] VITALS: BP 107/70; PULSE 65; TEMP 98; O2SAT 97
[2017-10-26] MEDS: Enoxaparin 40 mg Syringe SC SCH (09:02)
--- NOTE | 2017-10-26 12:03 | CP.PCM.DIS ---
Provider - Provider Date of Admission: 10/18/17 05:54 Attending physician: Rosas Gordon MD Primary care physician: Raquel Zendejas MD Time Spent in preparation of Discharge (in minutes): 15 Hospital Course - Lab Results Lab Results: Micro Results 10/19/17 Unknown Naris MRSA Culture - Final MRSA NOT DETECTED 10/18/17 08:58 Peritoneal Fluid Anaerobic Culture - Final NO ANAEROBES ISOLATED. 10/18/17 09:49 Naris MRSA Culture (Admit) - Final MRSA NOT DETECTED Most Recent Lab Values WBC 6.2 K/uL (4.8-10.8) 10/22/17 08:18 RBC 4.14 Mil/uL (3.80-5.20) 10/22/17 08:18 Hgb 8.3 g/dL (11.0-16.0) L 10/22/17 08:18 Hct 27.6 % (34.0-47.0) L 10/22/17 08:18 MCV 66.8 fL (81.0-99.0) L 10/22/17 08:18 MCH 20.2 pg (27.0-31.0) L 10/22/17 08:18 MCHC 30.2 g/dL (33.0-37.0) L 10/22/17 08:18 RDW 24.2 % (11.5-14.5) H 10/22/17 08:18 Plt Count 470 K/uL (130-400) H 10/22/17 08:18 MPV 8.1 fL (7.2-11.7) 10/22/17 08:18 Neut % (Auto) 91.4 % (50.0-75.0) H 10/18/17 16:45 Lymph % (Auto) 3.7 % (20.0-40.0) L 10/18/17 16:45 [place] % (Auto) 4.5 % (0.0-10.0) 10/18/17 16:45 Eos % (Auto) 0.1 % (0.0-4.0) 10/18/17 16:45 Baso % (Auto) 0.3 % (0.0-2.0) 10/18/17 16:45 Neut # 9.8 K/uL (1.8-7.0) H 10/18/17 16:45 Lymph # 0.4 K/uL (1.0-4.3) L 10/18/17 16:45 [place] # 0.5 K/uL (0.0-0.8) 10/18/17 16:45 Eos # 0.0 K/uL (0.0-0.7) 10/18/17 16:45 Baso # 0.0 K/uL (0.0-0.2) 10/18/17 16:45 Neutrophils % (Manual) 75 % (50-75) 10/18/17 16:45 Band Neutrophils % 8 % (0-2) H 10/18/17 16:45 Lymphocytes % (Manual) 9 % (20-40) L 10/18/17 16:45 Monocytes % (Manual) 8 % (0-10) 10/18/17 16:45 Differential Comment 10/18/17 01:21 Platelet Estimate Slightly increased (NORMAL) H 10/18/17 16:45 Large Platelets Present 10/18/17 16:45 Polychromasia Slight 10/18/17 16:45 Hypochromasia (manual) Moderate 10/18/17 16:45 Poikilocytosis (manual Slight 10/18/17 16:45 Anisocytosis (manual) Slight 10/18/17 16:45 Microcytosis (manual) Slight 10/18/17 16:45 Target Cells Slight 10/18/17 16:45 Ovalocytes Slight 10/18/17 16:45 PT 10.7 SECONDS (9.7-12.2) 10/18/17 01:21 INR 1.0 10/18/17 01:21 APTT 23 SECONDS (21-34) 10/18/17 01:21 Sodium 139 mmol/L (132-148) 10/22/17 08:18 Potassium 4.0 mmol/L (3.6-5.2) 10/22/17 08:18 Chloride 101 mmol/L (98-107) 10/22/17 08:18 Carbon Dioxide 28 mmol/L (22-30) 10/22/17 08:18 Anion Gap 14 (10-20) 10/22/17 08:18 BUN 6 mg/dL (7-17) L 10/22/17 08:18 Creatinine 0.8 mg/dL (0.7-1.2) 10/22/17 08:18 Est GFR ( Amer) > 60 10/22/17 08:18 Est GFR (Non-Af Amer) > 60 10/22/17 08:18 POC Glucose (mg/dL) 117 mg/dL (65-110) H 10/19/17 11:36 Random Glucose 75 mg/dL (65-105) 10/22/17 08:18 Calcium 8.6 mg/dl (8.6-10.4) 10/22/17 08:18 Phosphorus 4.0 mg/dL (2.5-4.5) 10/18/17 16:45 Magnesium 1.5 mg/dL (1.6-2.3) L 10/18/17 16:45 Iron 14 ug/dL (37-170) L 10/18/17 18:39 TIBC 358 ug/dL (250-450) 10/18/17 18:39 % Saturation 4 (20-55) L 10/18/17 18:39 Total Bilirubin 0.8 mg/dL (0.2-1.3) 10/22/17 08:18 AST 13 U/L (14-36) L 10/22/17 08:18 ALT 32 U/L (9-52) 10/22/17 08:18 Alkaline Phosphatase 58 U/L (38-126) 10/22/17 08:18 Troponin I < 0.0120 ng/mL (0.00-0.120) 10/18/17 16:45 Total Protein 6.0 g/dL (6.3-8.3) L 10/22/17 08:18 Albumin 3.2 g/dL (3.5-5.0) L 10/22/17 08:18 Globulin 2.8 gm/dL (2.2-3.9) 10/22/17 08:18 Albumin/Globulin Ratio 1.1 (1.0-2.1) 10/22/17 08:18 Lipase 24 U/L (23-300) 10/18/17 01:21 Ethanolamine None detected 10/18/17 18:39 Urine Color Yellow (YELLOW) 10/18/17 02:15 Urine Clarity Clear (Clear) 10/18/17 02:15 Urine pH 8.0 (5.0-8.0) 10/18/17 02:15 Ur Specific [place] 1.011 (1.003-1.030) 10/18/17 02:15 Urine Protein Negative mg/dL (NEGATIVE) 10/18/17 02:15 Urine Glucose (UA) Normal mg/dL (Normal) 10/18/17 02:15 Urine Ketones Negative mg/dL (NEGATIVE) 10/18/17 02:15 Urine Blood Negative (NEGATIVE) 10/18/17 02:15 Urine Nitrate Negative (NEGATIVE) 10/18/17 02:15 Urine Bilirubin Negative (NEGATIVE) 10/18/17 02:15 Urine Urobilinogen Normal mg/dL (0.2-1.0) 10/18/17 02:15 Ur Leukocyte Esterase Neg [place]/uL (Negative) 10/18/17 02:15 Urine WBC (Auto) 1 /hpf (0-5) 10/18/17 02:15 Urine RBC (Auto) 1 /hpf (0-3) 10/18/17 02:15 Ur Squamous Epith Cells 2 /hpf (0-5) 10/18/17 02:15 Urine Bacteria Rare (<OCC) 10/18/17 02:15 Urine HCG, Qual Negative (NEGATIVE) 10/18/17 02:15 Urine Opiates Screen Positive (NEGATIVE) H 10/18/17 07:39 Urine Methadone Screen Negative (NEGATIVE) 10/18/17 07:39 Ur Barbiturates Screen Negative (NEGATIVE) 10/18/17 07:39 Ur Phencyclidine Scrn Negative (NEGATIVE) 10/18/17 07:39 Ur Amphetamines Screen Negative (NEGATIVE) 10/18/17 07:39 U Benzodiazepines Scrn Negative (NEGATIVE) 10/18/17 07:39 U Oth Cocaine Metabols Positive (NEGATIVE) H 10/18/17 07:39 U Cannabinoids Screen Negative (NEGATIVE) 10/18/17 07:39 Toxicology Panel see note 10/18/17 18:39 Methyl Alcohol Level None detected 10/18/17 18:39 Isopropanol None detected 10/18/17 18:39 Acetone Level None detected 10/18/17 18:39 C.trachomatis RNA (TMA) Not detected (Not Detected) 10/18/17 07:13 Hep Bs Antigen Negative (NEGATIVE) 10/18/17 16:45 Hepatitis C Antibody Negative (NEGATIVE) 10/18/17 16:45 N.gonorrhoeae RNA (TMA) Not detected (Not Detected) 10/18/17 07:13 Blood Type A POSITIVE 10/18/17 07:58 Antibody Screen Negative 10/18/17 07:58 - Hospital Course Hospital Course: Admitted with perforated pyloric ulcer, uncerwent urgent repair. Postop course unremarkable, tolerating regular diet. Psychiatry consult for history of bipolar disorder and substance abuse, placed on tapering methadone dose. - Date & Time of H&P Date of H&P: 11/17/17 Time of H&P: 05:00 Discharge Exam - Head Exam Head Exam: ATRAUMATIC, NORMAL INSPECTION, NORMOCEPHALIC - Eye Exam Pupil Exam: NORMAL ACCOMODATION, PERRL - ENT Exam ENT Exam: Mucous Membranes Moist - Neck Exam Neck exam: Full Rom - Respiratory Exam Respiratory Exam: NORMAL BREATHING PATTERN, UNREMARKABLE - GI/Abdominal Exam GI & Abdominal Exam: Normal Bowel Sounds. absent: Distended Additional comments: Midline incision clean, healing with ian intact - Extremities Exam Extremities exam: full ROM, normal capillary refill Discharge Plan - Discharge Medications Prescriptions: Famotidine [Pepcid] 20 mg PO BID 28 Days #60 tab QUEtiapine [Seroquel] 100 mg PO HS 30 Days #30 tab - Follow Up Plan Condition: GOOD Disposition: REHAB FACILITY/REHAB UNIT Referrals: Raquel Zendejas MD [Primary Care Provider] - Clinical Quality Measures - Date & Time of Discharge Summary Date of Discharge Summary: 10/26/17 Time of Discharge Summary: 12:09
== END 2017-10-26 16:20 | DRG 329 ==
LOC: C.ER 00:46 → SUPCPDRO 00:46 → C.9I 05:54 → C.5S 10-19 19:20
PROVIDERS: ADMIT Specialist; ATTEND Specialist
PROC: 0DU907Z Supplement Duodenum with Autologous Tissue Substitute, Open Approach (ICD-10-PCS; principal; 2017-10-18 08:00)
DX: K25.1 Acute gastric ulcer with perforation (principal); K65.0 Generalized (acute) peritonitis; R18.8 Other ascites; F11.23 Opioid dependence with withdrawal; F14.10 Cocaine abuse, uncomplicated; D50.9 Iron deficiency anemia, unspecified; F17.210 Nicotine dependence, cigarettes, uncomplicated; F31.9 Bipolar disorder, unspecified; I10 Essential (primary) hypertension; K59.00 Constipation, unspecified

== ENCOUNTER 2017-12-08 15:59 | Inpatient (IN) | payer MEDICAID, OTHER ==
[2017-12-08 16:13] VITALS: BMI 25.0
--- NOTE | 2017-12-08 17:56 | C.PDOC ---
History Of Present Illness 52 year old female is prescreened for detox presents to the ED for admission. Patient reports using both alcohol and heroin, last use was today of 6 bags of heroin and drank 1 can of beer [employer]. Patient denies SI/HI, hallucinations, CP, SOB, abdominal pain, chills, nausea, vomit. Time Seen by Provider: 12/08/17 16:46 Chief Complaint (Nursing): Substance Abuse History Per: Patient History/Exam Limitations: intoxication Onset/Duration Of Symptoms: Days Current Symptoms Are (Timing): Still Present Suicide/Self Injury Attempted (Context): None Modifying Factor(s): Alcohol Associated Symptoms: denies: Depression, Suicidal Thoughts, Suicidal Plan Recent travel outside of the [place]: No Additional History Per: Patient Past Medical History Reviewed: Historical Data, Nursing Documentation, Vital Signs Vital Signs: Last Vital Signs Temp 98.9 F 12/08/17 16:12 Pulse 77 12/08/17 16:12 Resp 18 12/08/17 16:12 BP 133/77 12/08/17 16:12 Pulse Ox 100 12/08/17 19:15 - Medical History PMH: Anemia, HTN Denies: Chronic Kidney Disease Surgical History: No Surg Hx - [facility] Procedures SUPPLEMENT DUODENUM WITH AUTOL SUB, OPEN APPROACH (10/18/17) Family History: States: Unknown Family Hx - Social History Hx Alcohol Use: No Hx Substance Use: Yes - Immunization History Hx Tetanus Toxoid Vaccination: No Hx Influenza Vaccination: No Hx Pneumococcal Vaccination: No Review Of Systems Constitutional: Negative for: Fever, Chills Cardiovascular: Negative for: Chest Pain, Palpitations Respiratory: Negative for: Cough, Shortness of Breath Gastrointestinal: Negative for: Nausea, Vomiting, Abdominal Pain Skin: Negative for: Rash Neurological: Negative for: Weakness, Numbness, Headache Psych: Positive for: Other (substance abuse). Negative for: Depression, Suicidal ideation Physical Exam - Physical Exam Appears: Non-toxic, No Acute Distress Skin: Normal Color, Warm, Dry Head: Atraumatic, Normacephalic Eye(s): bilateral: Normal Inspection Nose: No Discharge, No Deformity Oral Mucosa: Moist Neck: Normal ROM, Supple Chest: Symmetrical Cardiovascular: Rhythm Regular, No Murmur Respiratory: Normal Breath Sounds, No Rales, No Rhonchi, No Wheezing Gastrointestinal/Abdominal: Soft, No Tenderness, No Guarding, No Rebound Extremity: Normal ROM, No Pedal Edema, No Calf Tenderness, No Deformity, No Swelling Neurological/Psych: Oriented x3, Normal Speech, Normal Cognition Gait: Steady ED Course And Treatment - Laboratory Results Result Diagrams: 12/08/17 18:26 12/08/17 18:26 O2 Sat by Pulse Oximetry: 100 (On RA) Pulse Ox Interpretation: Normal Medical Decision Making Medical Decision Making: Impression : Heroin and ETOH abuse Plan: * Labs * UA * Catapres 0.1 mg PO * Pepcid 20 mg IVP * Toradol 30 mg IVP * Zofran 4 mg IVP Patient will be admitted to [address] [place] [address] Hannon. Disposition Discussed With Dr.: Anthony Hannon Doctor Will See Patient In The: Hospital Counseled Patient/Family Regarding: Studies Performed, Diagnosis - Disposition Disposition: HOSPITALIZED Disposition Time: 19:14 Condition: FAIR Forms: [facility] (Bahraini) - Clinical Impression Clinical Impression: Drug abuse, Drug dependence, Alcohol abuse - Scribe Statement The provider has reviewed the documentation as recorded by the Scribe Rich Johnston All medical record entries made by the Scribe were at my direction and personally dictated by me. I have reviewed the chart and agree that the record accurately reflects my personal performance of the history, physical exam, medical decision making, and the department course for this patient. I have also personally directed, reviewed, and agree with the discharge instructions and disposition.
[2017-12-08 18:31] LABS: BASO # 0.1 K/uL (0.0-0.2); BASO % 1.8 % (0.0-2.0); EOS # 0.1 K/uL (0.0-0.7); EOS % 1.6 % (0.0-4.0); HEMOGLOBIN 9.1 g/dL (11.0-16.0); LYMPH # 1.7 K/uL (1.0-4.3); LYMPH % 27.9 % (20.0-40.0); MEAN CORPUSCULAR HEMOGLOBIN 21.6 pg (27.0-31.0); MEAN CORPUSCULAR HGB CONC 30.7 g/dL (33.0-37.0); MEAN PLATELET VOLUME 8.7 fL (7.2-11.7); MONO # 0.4 K/uL (0.0-0.8); MONO % 6.4 % (0.0-10.0); NEUT # 3.8 K/uL (1.8-7.0); NEUT % 62.3 % (50.0-75.0); NRBC % 0.1 % (0.0-2.0); RBC 4.21 Mil/uL (3.80-5.20); RED CELL DISTRIBUTION WIDTH 27.4 % (11.5-14.5); WHITE BLOOD COUNT 6.1 K/uL (4.8-10.8)
[2017-12-08 18:32] LABS: MEAN CELL VOLUME 70.4 fL (81.0-99.0)
[2017-12-08 18:37] LABS: SQUAMOUS EPITHIAL 80 /hpf (0-5); URINE BACTERIA OCC (<OCC); URINE BILIRUBIN NEGATIVE (NEGATIVE); URINE BLOOD 1+ (NEGATIVE); URINE CLARITY Hazy (Clear); URINE COLOR Yellow (YELLOW); URINE GLUCOSE (UA) NORMAL (Normal); URINE NITRATE NEGATIVE (NEGATIVE); URINE PROTEIN 2+ mg/dL (NEGATIVE)
[2017-12-08 18:38] LABS: URINE LEUKOCYTE ESTERASE 1+ Leu/uL (Negative)
[2017-12-08 18:42] LABS: ALB/GLOB RATIO 1.2 (1.0-2.1); ALBUMIN 3.7 g/dL (3.5-5.0); ALT/SGPT 33 U/L (9-52); AST/SGOT 25 U/L (14-36); BLOOD UREA NITROGEN 8 mg/dL (7-17); CALCIUM 8.5 mg/dl (8.6-10.4); GFR AFRICAN-AMERICAN > 60; GFR NON-AFRICAN AMERICAN > 60
[2017-12-08 18:50] LABS: BARBITURATES, UR NEGATIVE (NEGATIVE); BENZODIAZEPINES, UR NEGATIVE (NEGATIVE); PHENCYCLIDINE, UR NEGATIVE (NEGATIVE)
[2017-12-08 18:52] LABS: OPIATES, UR POSITIVE (NEGATIVE)
--- NOTE | 2017-12-08 19:41 | PCM.BM ---
<Sonal Crooks - Last Filed: 12/08/17 19:38> Treatment Plan Problems - Problems identified on initial assessmt potiential for autonomic instability Date Initiated: 12/08/17 Time Initiated: 19:39 Assessment reference: NA Status: Active potiential for opiate withdrawal Date Initiated: 12/08/17 Time Initiated: 19:40 Assessment reference: NA Status: Active Treatment assets and liabiliti Patient Assests: ADL independent Patient Liabilities: substance abuse, medical problems - Milieu Protocol Maintain good personal hygiene: daily Encourage regular showers, daily Remind patient to perform daily oral care, daily Assist patient to perform ADL's Maintain personal safety: every shift Educate patient to report safety concerns to staff, every shift Monitor environment for contraband/sharps Medication safety: Monitor for expected outcome, potential side effects: every shift, Assess barriers to learning: every shift, Assess readiness for medication education: every shift <Albert Azul - Last Filed: 12/09/17 08:47> - Diagnosis (1) Opioid use disorder, severe, dependence Status: Acute Interventions: 12/09/17 08:47 * Assess 7x/week regarding severity of withdrawal * Educate regarding risks, benefits, side effects and alternatives of medications * Use Motivational Interviewing for abstinence * Use CBT for relapse prevention * Medication management for withdrawal symptoms * Encourage medication assisted treatment * (2) Alcohol use disorder, severe, dependence Status: Acute Interventions: 12/09/17 08:47 * Assess 7x/week regarding severity of withdrawal * Educate regarding risks, benefits, side effects and alternatives of medications * Use Motivational Interviewing for abstinence * Use CBT for relapse prevention * Medication management for withdrawal symptoms * Encourage medication assisted treatment *
[2017-12-09] MEDS ORDERED: Benzocaine 10% Oral Anesthetic (12 ml) MM PRN (12:18)
--- NOTE | 2017-12-09 13:05 | PCM.PSYCH ---
Initial Psychiatric Evaluation - Initial Psychiatric Evaluation Type of Admission: Voluntary Legal Status: Capacity Chief Complaint (in patient's own words): "I'm withdrawing" History of Present Illness and Precipitating Events: The patient is seen, chart reviewed and case discussed. This is a 52-year-old -[place]ib[place] female, single with 2 adult children, unemployed, lives with her parents in [place]. She is on welfare. The patient is here for heroin detox; using 10 bags intranasally for "years." She denies using painkillers and her longest sobriety was only 2 years. She has been to detox 4 times and rehabilitation twice. She also uses cocaine on and off , alcohol "a lot" and then she said likely 4 or 5 years but 24 ounce cans. She denies having wdw sxs in the past She smokes half pack per day cigarettes. She denies all other drugs. The patient was diagnosed with bipolar disorder and anxiety and she was on Depakote 1000 mg a day and Xanax 2 mg a day. She is currently not manic or depressed, and no psychotic symptoms elicited. Past psych history: No admissions and no suicide attempts. Family psych history: Denies Medical history: Peptic ulcer disease. Current Medications: Active Medications Generic Name Dose Route Start Last Admin Trade Name Freq PRN Reason Stop Dose Admin Acetaminophen 650 mg 12/08/17 19:43 12/09/17 11:47 Tylenol 325mg Tab PO 650 mg Q8 PRN Administration Pain, moderate (4-7) Benzocaine 0 ml 12/09/17 12:18 Anbesol MM Q4H PRN tooth ache Chlordiazepoxide 25 mg 12/08/17 19:46 12/09/17 11:46 Librium PO 25 mg Q6 PRN Administration alcohol withdrawal Clonidine HCl 0.1 mg 12/08/17 19:42 Catapres PO Q8 PRN opiate withdrawal Dicyclomine HCl 10 mg 12/08/17 19:44 Bentyl PO Q6 PRN abdominal spasm Hydroxyzine HCl 25 mg 12/08/17 19:43 Atarax PO Q6 PRN Anxiety Loperamide HCl 2 mg 12/08/17 19:48 Imodium PO Q8 PRN Loose stools Methadone HCl 15 mg 12/09/17 10:00 12/09/17 09:45 Methadone PO 12/13/17 09:59 15 mg Q24H MINERVA Administration Taper Quetiapine Fumarate 100 mg 12/08/17 22:00 12/08/17 21:04 Seroquel PO 100 mg HS MINERVA Administration Past Psychiatric History - Past Psychiatric History Previous Treatment History: Intensive Outpatient Pertinent Medical Hx (Current Medical&Sleep Prob, Allergies): Allergies Allergy/AdvReac Type Severity Reaction Status Date / Time No Known Allergies Allergy Verified 12/08/17 16:10 Docusate [Colace] 100 mg PO TID cap 10/26/17 Famotidine [Pepcid] 20 mg PO BID 28 Days #60 tab 10/26/17 QUEtiapine [Seroquel] 100 mg PO HS 30 Days #30 tab 10/26/17 Review of Systems - Neurological Neurological: UNREMARKABLE - Psychiatric Psychiatric: Abnormal Sleep Pattern, Anhedonia, Anxiety, Irritability. absent: Hallucinations, Homicidal Ideation, Suicidal Ideation Mental Status Examination - Personal Presentation Personal Presentation: Looks older than stated age - Affect Affect: Constricted - Motor Activity Motor Activity: Calm - Reliability in Providing Information Reliability in Providing Information: Fair - Speech Speech: Organized - Mood Mood: Anxious - Formal Thought Process Formal Thought Process: No Impairment - Cognitive Functions Orientation: Person, Place, Situation, Time Sensorium: Alert Attention/Concentration: Attentive Abstract Thinking: Todd Estimate of Intelligence: Average Judgement: Intact, as evidence by: Insight regarding need for hospitalization Memory: Recent intact, as evidence by: Ability to recall events of the day, Remote intact, as evidenced by: Abilit to recall sig. life events - Risk Risk: Withdrawal, Diminished functioning - Strength & Assets Inventory Strength & Assets Inventory: Family support, Cooperative DSM 5 DX - DSM 5 DSM 5 Diagnosis: opioid withdrawal Opioid use d/o - severe Alcohol use d/o - severe Bipolar d/o - last episode unspecified Cocaine use d/o - severe - Recommended/Plan of Treatment Treatment Recommendations and Plan of Treatment: Methadone detox Gabapentin for augmentation Abilify for mood sxs As needed medications All risks, benefits and alternatives of the meds discussed, and the pt agreed and understood. Attend groups and activities Supportive therapy and psychoeducation CA for abstinence CBT for relapse prevention Encourage MAT Refer to rehab or IOP, and self-help groups 34 min Projected ELOS: 4-5 days Prognosis: good with treatment Discharge Plan and Discharge Criteria: no wdw Refer to IOP - Smoking Cessation Smoking Cessation Initiated: Yes
[2017-12-09] MEDS: Benzocaine 7.5% 9.4 G TUBE MM PRN ×2 (14:34→18:52)
--- NOTE | 2017-12-10 13:57 | PCM.PYCHPN ---
Psychiatric Progress Note - Psychiatric Progress Note Patient seen today, length of contact: 16 min Patient Chief Complaint: "I'm a little better" Problems Identified/Issues Discussed: The pt is seen, chart reviewed, case discussed with staff. The pt is compliant with medications and reports no side-effects. Symptoms are improving but needs more time to stabilize. After care discussed, support and psychoeducation given. Extra methadone helped Medication Change: Yes (detox changes daily) Medical Record Reviewed: Yes Mental Status Examination - Cognitive Function Orientation: Person, Place, Situation, Time Memory: Impaired Attention: Poor Concentration: Poor Association: WNL Fund of Knowledge: Poor - Mood Mood: Anxious - Affect Affect: Constricted - Speech Speech: Appropriate - Formal Thought Process Formal Thought Process: No Impairment - Suicidal Ideation Suicidal Ideation: No - Homicidal Ideation Homicidal Ideation: No Goal/Treatment Plan - Goal/Treatment Plan Need for Continued Stay: Discharge may exacerbated symptoms, Severe functional impairment Progress Toward Problem(s) and Goals/Treatment Plan: Methadone detox Gabapentin for augmentation Abilify for mood sxs As needed medications All risks, benefits and alternatives of the meds discussed, and the pt agreed and understood. Attend groups and activities Supportive therapy and psychoeducation SD for abstinence CBT for relapse prevention Encourage MAT Refer to rehab or IOP, and self-help groups
[2017-12-10] MEDS ORDERED: Vitamins A & D Oint UD Foilpak TOP PRN (15:16)
[2017-12-11] MEDS: Benzocaine 7.5% 9.4 G TUBE MM PRN (10:21)
--- NOTE | 2017-12-11 10:56 | PCM.PYCHPN ---
Psychiatric Progress Note - Psychiatric Progress Note Patient seen today, length of contact: 17 min Patient Chief Complaint: "I couldn't sleep well" Problems Identified/Issues Discussed: The pt is seen, chart reviewed, case discussed with staff. Support given, CBT and CT used briefly No new symptoms reported, improving slowly and needs more time No SEs from medications, risks discussed. After care discussed - [facility] on Thursday Medication Change: Yes (detox changes daily, increase seroquel but decresase Abilify) Medical Record Reviewed: Yes Mental Status Examination - Cognitive Function Orientation: Person, Place, Situation, Time Memory: Impaired Attention: Poor Concentration: Poor Association: WNL Fund of Knowledge: Poor - Mood Mood: Anxious - Affect Affect: Constricted - Speech Speech: Appropriate - Formal Thought Process Formal Thought Process: No Impairment - Suicidal Ideation Suicidal Ideation: No - Homicidal Ideation Homicidal Ideation: No Goal/Treatment Plan - Goal/Treatment Plan Need for Continued Stay: Discharge may exacerbated symptoms, Severe functional impairment Progress Toward Problem(s) and Goals/Treatment Plan: Methadone detox Gabapentin for augmentation Abilify for mood sxs discontinued as she wants seroquel, which is now 200 hs As needed medications All risks, benefits and alternatives of the meds discussed, and the pt agreed and understood. Attend groups and activities Supportive therapy and psychoeducation CT for abstinence CBT for relapse prevention Refer to [facility]
[2017-12-12] MEDS: Benzocaine 7.5% 9.4 G TUBE MM PRN (12:11)
--- NOTE | 2017-12-12 17:29 | PCM.PYCHPN ---
Psychiatric Progress Note - Psychiatric Progress Note Patient seen today, length of contact: 17 min Patient Chief Complaint: "I couldn't sleep well" Problems Identified/Issues Discussed: The pt is seen, chart reviewed, case discussed with staff. Support given, CBT and LA used briefly No new symptoms reported, improving slowly and needs more time No SEs from medications, risks discussed. After care discussed - [facility] on Thursday Medication Change: Yes (detox changes daily, increase seroquel but decresase Abilify) Medical Record Reviewed: Yes Mental Status Examination - Cognitive Function Orientation: Person, Place, Situation, Time Memory: Impaired Attention: Poor Concentration: Poor Association: WNL Fund of Knowledge: Poor - Mood Mood: Anxious - Affect Affect: Constricted - Speech Speech: Appropriate - Formal Thought Process Formal Thought Process: No Impairment - Suicidal Ideation Suicidal Ideation: No - Homicidal Ideation Homicidal Ideation: No Goal/Treatment Plan - Goal/Treatment Plan Need for Continued Stay: Discharge may exacerbated symptoms, Severe functional impairment Progress Toward Problem(s) and Goals/Treatment Plan: Methadone detox Gabapentin for augmentation Abilify for mood sxs discontinued as she wants seroquel, which is now 200 hs As needed medications All risks, benefits and alternatives of the meds discussed, and the pt agreed and understood. Attend groups and activities Supportive therapy and psychoeducation LA for abstinence CBT for relapse prevention Refer to [facility]
[2017-12-12 21:11] VITALS: RESP 18
[2017-12-13 06:45] VITALS: O2SAT 100
[2017-12-13 08:28] VITALS: BP 114/69; PULSE 90; TEMP 97.7
--- NOTE | 2017-12-13 09:06 | PCM.PYCHDC ---
Mental Status Examination - Mental Status Examination Orientation: Person Discharge Summary - Discharge Note Consultations:: List each consultation separately and include: 1. Reason for request. 2. Findings. 3. Follow-up Summary of Hospital Course include:: 1. Description of specific treatment plan utilized for patients during their course of treatmen. 2. Summarize the time- course for resolution of acute symptoms and/or regressed behaviors. 3. Describe issues identified and worked on during hospitalization. 4. Describe medication utilized. 5. Describe medical problems identified and treated. 6. Reassessment of suicide risk Summary of Hospital Course: The patient is seen, chart reviewed and case discussed. This is a 52-year-old -Maldivian female, single with 2 adult children, unemployed, lives with her parents in [place]. She is on welfare. The patient is here for heroin detox; using 10 bags intranasally for "years." She denies using painkillers and her longest sobriety was only 2 years. She has been to detox 4 times and rehabilitation twice. She also uses cocaine on and off , alcohol "a lot" and then she said likely 4 or 5 years but 24 ounce cans. She denies having wdw sxs in the past She smokes half pack per day cigarettes. She denies all other drugs. The patient was diagnosed with bipolar disorder and anxiety and she was on Depakote 1000 mg a day and Xanax 2 mg a day. She is currently not manic or depressed, and no psychotic symptoms elicited. Past psych history: No admissions and no suicide attempts. Family psych history: Denies Medical history: Peptic ulcer disease. The pt will start [facility] tomorrow for methadone maintenance. - Final Diagnosis (DSM 5) Condition upon Discharge: FAIR Disposition: HOME/ ROUTINE Follow-up Treatment Plan: Methadone detox Gabapentin for augmentation Abilify for mood sxs discontinued as she wants seroquel, which is now 200 hs As needed medications All risks, benefits and alternatives of the meds discussed, and the pt agreed and understood. Attend groups and activities Supportive therapy and psychoeducation [place] for abstinence CBT for relapse prevention Refer to [facility] Prescriptions/Medication Reconciliation: ARIPiprazole [Abilify] 10 mg PO HS #30 tab QUEtiapine [Seroquel] 200 mg PO HS #30 tab
== END 2017-12-13 11:00 | disposition home or self-care (01) | DRG 745 ==
LOC: C.ER 15:59 → C.7D 19:13
PROC: HZ2ZZZZ Detoxification Services for Substance Abuse Treatment (ICD-10-PCS; principal; 2017-12-08)
PROC: HZ56ZZZ Individual Psychotherapy for Substance Abuse Treatment, Psychoeducation (ICD-10-PCS; 2017-12-08)
PROC: HZ46ZZZ Group Counseling for Substance Abuse Treatment, Psychoeducation (ICD-10-PCS; 2017-12-08)
PROC: GZ3ZZZZ Medication Management (ICD-10-PCS; 2017-12-08)
DX: F11.23 Opioid dependence with withdrawal (principal); F31.9 Bipolar disorder, unspecified; F10.20 Alcohol dependence, uncomplicated; F14.90 Cocaine use, unspecified, uncomplicated; I10 Essential (primary) hypertension; Z87.11 Personal history of peptic ulcer disease

== ENCOUNTER 2018-02-16 23:46 | Emergency (ER) | payer MEDICAID, OTHER ==
[2018-02-16 23:46] VITALS: BMI 25.0
[2018-02-16 23:53] VITALS: PULSE 76; RESP 18
--- NOTE | 2018-02-17 00:17 | C.PDOC ---
History Of Present Illness 52 y/o female with prior hx of alcoholism and GI bleed secondary to perforated gastric ulcer, now presents with complaints of vomiting blood yesterday. Admits to alcohol ingestion yesterday along with NSAID use. States she has been having black stools since yesterday and had unquantified number of hematemesis. No diarrhea, chest pain, SOB, or fever. Time Seen by Provider: 02/17/18 00:14 Chief Complaint (Nursing): GI Problem History Per: Patient History/Exam Limitations: no limitations Onset/Duration Of Symptoms: Days (x2) Current Symptoms Are (Timing): Still Present Number Of Bleeding Episodes: Unknown Associated Symptoms: Vomiting, Hematemesis, Melena Past Medical History Reviewed: Historical Data, Nursing Documentation, Vital Signs Vital Signs: Last Vital Signs Temp 98 F 02/17/18 03:26 Pulse 76 02/17/18 02:39 Resp 18 02/17/18 02:39 BP 132/78 02/17/18 02:39 Pulse Ox 99 02/17/18 04:44 - Medical History PMH: Anemia, HTN Denies: Diabetes, Hepatitis, HIV, Chronic Kidney Disease, Seizures, Sexually Transmitted Disease Other Surgeries: Right leg surgery, intestinal surgery - [facility] Procedures DETOXIFICATION SERVICES FOR SUBSTANCE ABUSE TREATMENT (12/08/17) 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 Constitutional: Negative for: Fever Cardiovascular: Negative for: Chest Pain Respiratory: Negative for: Shortness of Breath Gastrointestinal: Positive for: Vomiting, Abdominal Pain, Melena, Hematemesis. Negative for: Diarrhea Physical Exam - Physical Exam Appears: No Acute Distress, Other (Appears much older than stated age) Skin: Normal Color, Warm, Dry Head: Atraumatic, Normacephalic Eye(s): bilateral: Normal Inspection (sclerae anicteric), PERRL, EOMI Nose: Normal Oral Mucosa: Moist Teeth: Edentulous Neck: Normal ROM, Supple Chest: Symmetrical Cardiovascular: Rhythm Regular, No Murmur, Other (S1,S2 are wnl) Respiratory: Normal Breath Sounds, No Accessory Muscle Use Gastrointestinal/Abdominal: Bowel Sounds (active), Tenderness (Diffuse epigastric tenderness on palpation), Guarding (voluntary), No Rebound Rectal: Rectal Tone (normal), Other (soft brown stool, awaiting hemoccult result , no gross blood) Extremity: Bilateral: Atraumatic, Normal Color And Temperature, Normal ROM Neurological/Psych: Oriented x3, Normal Speech ED Course And Treatment - Laboratory Results Result Diagrams: 02/17/18 00:20 02/17/18 00:47 O2 Sat by Pulse Oximetry: 99 (RA) Pulse Ox Interpretation: Normal Medical Decision Making Medical Decision Making: Impression: GI Bleed, Alcohol Dependency, Alcoholic Gastritis Initial Plan: * Blood type and screen * Urine drug screen * Alcohol serum * Ammonia * CMP * CBC * PTT * Prothrombin time * Pepcid 20 mg IVP * Compazine 5 mg IVP * IVF hydration * Reevaluation Disposition - Disposition Referrals: [facility] [Outside] Disposition: HOME/ ROUTINE Disposition Time: 04:45 Condition: FAIR Prescriptions: Famotidine [Pepcid] 40 mg PO DAILY #14 ml Famotidine [Pepcid] 40 mg PO DAILY #14 tab Instructions: Gastritis, Alcohol Abuse and Alcoholism (DC) Forms: [employer] (French) Print Language: UKRAINIAN - Clinical Impression Clinical Impression: Gastritis, Alcohol abuse - Scribe Statement The provider has reviewed the documentation as recorded by the Scribe (Wnedi Ramsey) Provider Attestation: All medical record entries made by the Scribe were at my direction and personally dictated by me. I have reviewed the chart and agree that the record accurately reflects my personal performance of the history, physical exam, medical decision making, and the department course for this patient. I have also personally directed, reviewed, and agree with the discharge instructions and disposition.
[2018-02-17] MEDS ORDERED: Sodium Chloride 0.9% 1,000 ML IV ONE (00:20)
[2018-02-17] MEDS ORDERED: Multivitamin (MVI) 10 ML, Thiamine 100 MG, Folic Acid 1 MG in Sodium Chloride 0.9% 1,00... IV ONE (00:22)
[2018-02-17 00:37] LABS: BASO # 0.1 K/uL (0.0-0.2); BASO % 1.1 % (0.0-2.0); EOS # 0.1 K/uL (0.0-0.7); EOS % 0.9 % (0.0-4.0); HEMOGLOBIN 8.5 g/dL (11.0-16.0); LYMPH # 1.5 K/uL (1.0-4.3); LYMPH % 24.6 % (20.0-40.0); MEAN CELL VOLUME 71.2 fL (81.0-99.0); MEAN CORPUSCULAR HEMOGLOBIN 21.8 pg (27.0-31.0); MEAN CORPUSCULAR HGB CONC 30.7 g/dL (33.0-37.0); MEAN PLATELET VOLUME 7.5 fL (7.2-11.7); MONO # 0.5 K/uL (0.0-0.8); MONO % 7.8 % (0.0-10.0); NEUT # 4.1 K/uL (1.8-7.0); NEUT % 65.6 % (50.0-75.0); NRBC % 0.1 % (0.0-2.0); RBC 3.89 Mil/uL (3.80-5.20); RED CELL DISTRIBUTION WIDTH 20.7 % (11.5-14.5); WHITE BLOOD COUNT 6.2 K/uL (4.8-10.8)
[2018-02-17 00:42] LABS: PROTHROMBIN TIME 11.2 SECONDS (9.7-12.2)
[2018-02-17] MEDS ORDERED: Sodium Chloride 0.9% 1,000 ML ONE (00:54)
[2018-02-17 00:56] LABS: ALB/GLOB RATIO 1.1 (1.0-2.1); ALBUMIN 3.7 g/dL (3.5-5.0); ALT/SGPT 33 U/L (9-52); AST/SGOT 47 U/L (14-36); BLOOD UREA NITROGEN 16 mg/dL (7-17); GFR AFRICAN-AMERICAN > 60; GFR NON-AFRICAN AMERICAN 59
[2018-02-17] MEDS ORDERED: Aluminum Hydroxide/Magnesium Hydroxide Susp (30 mL) PO STA (01:07)
[2018-02-17] MEDS ORDERED: Alum-Mag Hydrox-Simethicone Susp (30 mL) ONE (01:16)
[2018-02-17 02:39] VITALS: BP 132/78
[2018-02-17 03:26] VITALS: TEMP 98
[2018-02-17 04:44] VITALS: O2SAT 99
== END 2018-02-17 03:27 | disposition home or self-care (01) ==
LOC: C.ER 23:46 → SUPCPDRO 23:46 → C.ER 02-17 03:27
DX: K29.70 Gastritis, unspecified, without bleeding (principal); F10.10 Alcohol abuse, uncomplicated; Y90.9 Presence of alcohol in blood, level not specified
CPT/HCPCS: 80053; 80320; 82140; 85025; 85610; 85730; 86850; 86900; 96365; 96366; 96375; 99285; G0328; J0780; J3411; J7040

== ENCOUNTER 2018-04-13 00:15 | Emergency (ER) | payer OTHER ==
[2018-04-13 00:15] VITALS: BMI 25.0
[2018-04-13] MEDS ORDERED: DiphenhydrAMINE 12.5 mg/5 ml LIQ UD (5 ml) PO STA (00:54)
--- NOTE | 2018-04-13 01:38 | C.PDOC ---
History Of Present Illness Pt BIBEMS with c/o of diffuse pruritic rash x 2 days. Denies SOB, lip or tongue swelling, no known allergens, no SOB. 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, PSYCHOEDUCATION (12/08/17) INDIV PSYCHOTHERAPY FOR SUBSTANCE ABUSE, PSYCHOEDUCATION (12/08/17) MEDICATION MANAGEMENT (12/08/17) SUPPLEMENT DUODENUM WITH AUTOL SUB, OPEN APPROACH (10/18/17) Family History: States: Unknown Family Hx - Social History Hx Tobacco Use: Yes Hx Alcohol Use: Yes Hx Substance Use: No - Immunization History Hx Tetanus Toxoid Vaccination: No Hx Influenza Vaccination: No Hx Pneumococcal Vaccination: No Review Of Systems Constitutional: Negative for: Fever ENT: Negative for: Mouth Swelling, Throat Pain, Throat Swelling Respiratory: Negative for: Shortness of Breath, Wheezing Skin: Positive for: Rash Physical Exam - Physical Exam Appears: Well, No Acute Distress Skin: Rash (diffuce maculopapular rash with hives) Eye(s): bilateral: Normal Inspection Oral Mucosa: Moist Throat: Normal, No Erythema Neck: Normal, Supple Respiratory: Normal Breath Sounds, No Wheezing Extremity: Normal ROM Neurological/Psych: Oriented x3 ED Course And Treatment O2 Sat by Pulse Oximetry: 99 Pulse Ox Interpretation: Normal Progress Note: Benadryl and prednisone PO ordered Reassessment Condition: Improved (remains stable, no distress) Disposition Counseled Patient/Family Regarding: Diagnosis, Need For Followup, Rx Given - Disposition Disposition: HOME/ ROUTINE Disposition Time: 01:36 Condition: STABLE Additional Instructions: Please follow up with PMD Return to ER if worse Prescriptions: DiphenhydrAMINE [Benadryl] 25 mg PO QID #14 cap predniSONE [Prednisone] 40 mg PO DAILY #8 tab Instructions: Skin Rash (DC) Forms: [employer] (Amharic) - Clinical Impression Clinical Impression: Urticaria
[2018-04-13 02:44] VITALS: BP 126/72; PULSE 72; RESP 18; TEMP 97.3; O2SAT 98
== END 2018-04-13 02:18 | disposition home or self-care (01) ==
LOC: C.ER 00:15
DX: L50.9 Urticaria, unspecified (principal); I10 Essential (primary) hypertension; Z72.0 Tobacco use